=== PATIENT | male | born 1965 | race Caucasian/White ===

== ENCOUNTER 2021-07-15 09:19 | Outpatient (REF) | payer OTHER, SELFPAY ==
--- NOTE | ~2021-07-15 | US_ITS ---
EXAMINATION: US RETROPERITONEAL LIMITED (RENAL ONLY) CLINICAL INFORMATION: Low back pain, unspecified. COMPARISON: CT abdomen and pelvis 11/19/2015. Renal ultrasound 10/31/2007. TECHNIQUE: Real-time imaging of the kidneys. FINDINGS: RIGHT KIDNEY: 10.5 x 5.4 x 5.9 cm (SAG x AP x TRV). The kidney is normal in size, contour, and echogenicity. Renal cortical thickness is normal. Punctate midpole echogenic focus is nonspecific but suspected to represent a vascular reflection. No gross renal calculi. No hydronephrosis. LEFT KIDNEY: 10.7 x 5.2 x 6.1 cm (SAG x AP x TRV). The kidney is normal in size, contour, and echogenicity. Renal cortical thickness is normal. No calculi or focal parenchymal lesions. No hydronephrosis. US/US renal BI IMPRESSION: No gross renal calculi or hydronephrosis of either kidney.
== END 2021-07-15 09:20 | disposition home or self-care (01) ==
LOC: HO.HMGCX 09:19
PROVIDERS: Visit Provider Physician Assistant
DX: M54.50 Low back pain, unspecified (principal); N39.0 Urinary tract infection, site not specified
CPT/HCPCS: 76775; 87086

== ENCOUNTER 2022-01-10 11:34 | Outpatient (REF) | payer OTHER, SELFPAY ==
[2022-01-10 13:59] LABS: MANUAL DIFF FLAG NO
[2022-01-10 14:07] LABS: Basophils Absolute Auto 0.1 X10*3/uL (0.0-0.2); Basophils Percent Auto 0.5 % (0-2); Eosinophils Absolute Auto 0.1 X10*3/uL (0.0-0.4); Eosinophils Percent Auto 1.1 % (0-4); Hematocrit 51.7 % (42.0-52.0); Hemoglobin 17.3 g/dl (14.0-18.0); Imm Gran Abs Auto 0.05 X10*3/uL (0.00-0.03); Imm Gran Pct Auto 0.5 % (0.0-0.4); Lymphocytes Absolute Auto 2.4 X10*3/uL (1.2-4.9); Lymphocytes Percent Auto 25.2 % (20-40); Mean Corpuscular HGB Conc 33.5 g/dl (31.0-36.0); Mean Corpuscular Volume 95.6 fL (80.0-98.0); Mean Platelet Volume 10.1 fL (9.4-12.4); Monocytes Percent Auto 10.4 % (2-11); Neutrophils Absolute Auto 5.8 x10*3/uL (2.0-8.3); Neutrophils Percent Auto 62.3 % (45-73); Platelet Count 330 X10*3/uL (160-400); Red Blood Count 5.41 X10*6/uL (4.60-5.80); Red Cell Distribution Width 14.6 % (11.0-16.0); White Blood Count 9.4 X10*3/uL (4.8-10.8)
[2022-01-10 14:21] LABS: Appearance Urine Clear; Color Urine Dark Yellow; Glucose Urine UA Negative (Negative); Leukocyte Esterase Urine Moderate (2+) (Negative); Nitrite Urine Negative (Negative); PH 5.5 (5.0-9.0); UMIC TRIGGER UACC YES; Urine Blood Negative (Negative); Urine Ketones Trace mg/dL (Negative); Urine Protein Trace mg/dL (Neg-Trace)
[2022-01-10 14:26] LABS: Bacteria Urine None Seen (None Seen); UACC Culture Trigger YES; WBC Urine 21-50 /HPF (0-5)
[2022-01-10 14:40] LABS: Alanine Aminotransferase 88 U/L (0-40); Albumin Level 4.2 g/dL (3.5-5.0); Alkaline Phosphatase 63 U/L (39-117); Anion Gap 17 (12-20); Aspartate Amino Transferase 44 U/L (5-37); Blood Urea Nitrogen 13 mg/dL (9-16); Calcium 9.3 mg/dL (8.4-10.2); Carbon Dioxide 23 mmol/L (22-29); Chloride 104 mmol/L (96-108); Cholesterol 210 mg/dL; Estimated Glomerular Filt Rate > 60; Glucose Fasting 96 mg/dL (60-99); HDL Cholesterol 64 mg/dL; LDL Cholesterol Calculated 131 mg/dl; Potassium 4.1 mmol/L (3.3-5.1); Sodium 140 mmol/L (135-145); Total Protein 6.6 g/dL (6.5-8.0); Triglycerides 77 mg/dL
[2022-01-10 14:46] LABS: Prostate Specific Antigen Scr 2.37 ng/mL (<0.05-4.0); TSH reflex Free T4 1.81 uIU/mL (0.32-4.0)
== END 2022-01-10 11:35 | disposition home or self-care (01) ==
LOC: HO.HMGCLDS 11:34
PROVIDERS: PCP Nurse Practitioner Family; Visit Provider Nurse Practitioner Family
DX: Z00.00 Encounter for general adult medical examination without abnormal findings (principal); Z12.5 Encounter for screening for malignant neoplasm of prostate
CPT/HCPCS: 36415; 80053; 80061; 81001; 81003; 84153; 84443; 85025; 87086

== ENCOUNTER 2022-01-28 08:19 | Outpatient (REF) | payer OTHER, SELFPAY ==
--- NOTE | ~2022-01-28 | US_ITS ---
EXAMINATION: US ABDOMEN COMPLETE CLINICAL INFORMATION: Elevated liver enzymes. COMPARISON: Renal ultrasound 07/15/2021. CT abdomen and pelvis 11/19/2015. TECHNIQUE: Real-time imaging of the abdominal viscera. FINDINGS: PANCREAS: Normal. ABDOMINAL AORTA: The proximal, mid, and distal segments are normal in caliber. INFERIOR VENA CAVA: Visualized portions are normal. LIVER: The liver is normal in size. The liver contour is normal. Echotexture is increased. There are 2 simple cysts measuring 1.3 cm in the left lobe and 1 cm in the right lobe. There is a 1.3 x 1.4 x 1.3 cm solid hyperechoic lesion in the left lobe. There is no intrahepatic biliary duct dilatation seen. GALLBLADDER: Normal. The gallbladder is physiologically distended without evidence of stones, sludge, polyps, wall thickening or pericholecystic fluid. COMMON BILE DUCT: Normal in caliber measuring 0.28 cm in diameter. RIGHT KIDNEY: Normal. No hydronephrosis. No renal calculi or focal parenchymal lesions. The kidney measures 11.1 cm in maximum dimension. LEFT KIDNEY: Normal. No hydronephrosis. No renal calculi or focal parenchymal lesions. The kidney measures 11.5 cm in maximum dimension. SPLEEN: Normal. The spleen measures 10.2 cm in maximum dimension. FREE FLUID: None. US/US abdomen complete IMPRESSION: Liver cysts. 1.3 x 1.4 cm solid hyperechoic lesion in the left lobe of the liver. No definite corresponding abnormality is appreciated on CT October 2015. This may represent a benign hemangioma. Further characterization with liver MRI recommended.
[2022-01-28 11:46] LABS: Appearance Urine Clear; Color Urine Yellow; Glucose Urine UA Negative (Negative); Leukocyte Esterase Urine Small (1+) (Negative); Nitrite Urine Negative (Negative); Specific Gravity - Urine 1.025 (1.005-1.025); UMIC TRIGGER UACC YES; Urine Blood Trace (Negative); Urine Ketones Negative (Negative); Urine Protein Negative (Neg-Trace)
[2022-01-28 11:53] LABS: Bacteria Urine None Seen (None Seen); Squamous Epithelial Cell Urine 0-2 /HPF (0-2); UACC Culture Trigger YES
[2022-01-28 12:03] LABS: HBS Num1 330.63 mIU/mL (0-7.99); HBc Num1 7.85 S/CO (0.00-0.79); HBsAGNum1 0.16 S/CO (0.00-0.99); Hepatitis A Antibody IgM 0.22 Index (0-0.79); Hepatitis B Surface Antigen Negative (Negative); ~HepC Num1 0.05 S/CO (0.00-0.79); ~Hepatitis A Antibody IgM Nonreactive (Nonreactive); ~Hepatitis B Surface Antibody REACTIVE (Nonreactive); ~Hepatitis C Antibody Nonreactive (Nonreactive)
[2022-01-28 14:57] LABS: HBc Num3 7.37 S/CO
[2022-01-28 14:58] LABS: Hepatitis B Core Antibody Reactive (Nonreactive)
== END 2022-01-28 08:20 | disposition home or self-care (01) ==
LOC: HO.HMGCX 08:19
PROVIDERS: PCP Nurse Practitioner Family; Visit Provider Nurse Practitioner Family
DX: Z00.00 Encounter for general adult medical examination without abnormal findings (principal); N39.0 Urinary tract infection, site not specified; R74.8 Abnormal levels of other serum enzymes; K76.89 Other specified diseases of liver
CPT/HCPCS: 36415; 76700; 81001; 86704; 86706; 86709; 86803; 87086; 87340

== ENCOUNTER 2022-01-28 15:37 | Outpatient (REF) | payer OTHER, SELFPAY | END 2022-01-28 15:38 | disposition home or self-care (01) | LOC: HO.LAB 15:37 | PROVIDERS: Visit Provider Nurse Practitioner Family | DX: Z00.00 Encounter for general adult medical examination without abnormal findings (principal); N39.0 Urinary tract infection, site not specified; R74.8 Abnormal levels of other serum enzymes | CPT/HCPCS: 88112 ==

== ENCOUNTER 2022-02-21 17:38 | Outpatient (REF) | payer OTHER, SELFPAY ==
--- NOTE | ~2022-02-21 | MR_ITS ---
EXAMINATION: MR ABDOMEN WITHOUT AND WITH CONTRAST CLINICAL INFORMATION: Liver disease COMPARISON: Abdominal ultrasound 01/28/2022 TECHNIQUE: MRI of the abdomen before and after the IV administration of 8 mL of Gadavist was obtained using routine sequences. FINDINGS: LUNG BASES: The visualized lung bases are unremarkable. KIDNEYS AND URETERS: Unremarkable. GALLBLADDER: Unremarkable. LIVER AND BILIARY TREE: Loss of signal on opposed phase imaging compatible with hepatic steatosis. Scattered hepatic cysts. 2. T2 hyperintense lesions which demonstrate somewhat heterogeneous avid arterial phase enhancement 1 in hepatic segment 2 and 1 in hepatic segment 7 with gradual homogeneous enhancement favored to reflect flash filling hemangiomas. The hepatic segment 7 lesion demonstrates peripheral arterial phase enhancement surrounding the lesion which is isointense on the remainder of phases suggesting a transient hepatic intensity difference/perfusional anomaly. No intra or extrahepatic biliary duct dilatation. PANCREAS: Unremarkable SPLEEN: Unremarkable ADRENAL GLANDS: Unremarkable GASTROINTESTINAL TRACT: Unremarkable. LYMPH NODES: 0.7 cm short axis retrocaval node not pathologically enlarged. VASCULAR: Unremarkable ABDOMINAL WALL: Unremarkable. OSSEOUS STRUCTURES: Unremarkable. MR/MR abdomen wo/w con IMPRESSION: 1. Two T2 hyperintense lesions which demonstrate somewhat heterogeneous avid arterial phase enhancement gradual homogeneous enhancement favored to reflect flash filling hemangiomas. The hepatic segment 7 lesion demonstrates peripheral arterial phase enhancement surrounding the lesion which is isointense on the remainder of phases suggesting a transient hepatic intensity difference/perfusional anomaly. 2. Hepatic steatosis.
== END 2022-02-21 17:39 | disposition home or self-care (01) ==
LOC: HO.MRI 17:38
PROVIDERS: Visit Provider Nurse Practitioner Family
DX: K76.9 Liver disease, unspecified (principal)
CPT/HCPCS: 74183; A9585

== ENCOUNTER 2022-02-25 14:13 | Outpatient (REF) | payer OTHER, SELFPAY ==
--- NOTE | ~2022-02-25 | CT_ITS ---
EXAMINATION: CT CHEST SCREENING CLINICAL INFORMATION: Nicotine dependence. 1 PPD for 38 years. Current smoker. COMPARISON: None. TECHNIQUE: Multidetector volumetric CT imaging of the chest is performed without contrast using low dose technique. Additional 2D coronal and sagittal reformatted images and axial 3D maximum intensity projection (MIP) images are generated on the CT workstation. This CT examination was performed using dose optimization techniques as appropriate, variously including the following: *Automated exposure control *Adjustment of mA and/or kV according to patient size (this includes techniques or standardized protocols for targeted exams where dose is matched to indication/reason for exam; i.e. extremities or head) *Use of iterative reconstruction technique DLP: 65 mGy-cm FINDINGS: LUNGS: The lungs are well-expanded and clear with acute pneumonic consolidation, mass or groundglass density. There are punctate 1 mm calcifications right upper and bilateral lower lobes. Minimal atelectatic changes are seen in the lingula. MEDIASTINUM: The thyroid lobes are symmetric and normal. The central trachea and the bronchi are widely patent. Heart size and the great vessels are normal caliber. There is no pericardial effusion. There are small shotty lymph nodes in the mediastinum. CORONARY ARTERY CALCIFICATION: None visualized on this study. PLEURA: There is no pleural effusion. No pleural mass or thickening. AXILLA: No lymphadenopathy. UPPER ABDOMEN: Visualized liver, spleen, pancreas are unremarkable. A prominent left adrenal gland measuring 1.6 cm is noted. OSSEOUS STRUCTURES: Unremarkable. CT/CT lung screening IMPRESSION: Punctate 1 mm calcifications, no noncalcified nodules, mass or mediastinal adenopathy. ASSESSMENT: Lung-RADS category 2: Benign. RECOMMENDATION: Low-dose annual CT chest.
== END 2022-02-25 14:14 | disposition home or self-care (01) ==
LOC: HO.CT 14:13
PROVIDERS: PCP Nurse Practitioner Family; Visit Provider Physician Assistant Medical
DX: Z12.2 Encounter for screening for malignant neoplasm of respiratory organs (principal); F17.210 Nicotine dependence, cigarettes, uncomplicated
CPT/HCPCS: 71271; G0296

== ENCOUNTER 2022-08-15 10:13 | Outpatient (REF) | payer OTHER, SELFPAY ==
[2022-08-16 09:08] LABS: Lyme Abs Screen <0.90 index
== END 2022-08-15 10:14 | disposition home or self-care (01) ==
LOC: HO.HMGCLDS 10:13
PROVIDERS: PCP Nurse Practitioner Family; Visit Provider Physician Assistant
DX: R22.0 Localized swelling, mass and lump, head (principal)
CPT/HCPCS: 36415; 86617; 86618

== ENCOUNTER 2022-09-06 08:06 | Outpatient (REF) | payer OTHER, SELFPAY ==
[2022-09-06 11:12] LABS: MANUAL DIFF FLAG NO
[2022-09-06 11:33] LABS: Basophils Percent Auto 0.6 % (0-2); Eosinophils Absolute Auto 0.2 X10*3/uL (0.0-0.4); Eosinophils Percent Auto 2.2 % (0-4); Hematocrit 51.2 % (42.0-52.0); Imm Gran Abs Auto 0.04 X10*3/uL (0.00-0.03); Imm Gran Pct Auto 0.6 % (0.0-0.4); Lymphocytes Absolute Auto 2.2 X10*3/uL (1.2-4.9); Lymphocytes Percent Auto 30.4 % (20-40); Mean Corpuscular HGB Conc 33.2 g/dl (31.0-36.0); Mean Corpuscular Hemoglobin 30.1 pg (27.0-33.0); Mean Corpuscular Volume 90.6 fL (80.0-98.0); Mean Platelet Volume 9.6 fL (9.4-12.4); Monocytes Absolute Auto 0.7 X10*3/uL (0.1-1.2); Neutrophils Absolute Auto 4.1 x10*3/uL (2.0-8.3); Neutrophils Percent Auto 56.2 % (45-73); Platelet Count 299 X10*3/uL (160-400); Red Blood Count 5.65 X10*6/uL (4.60-5.80); Red Cell Distribution Width 14.4 % (11.0-16.0); White Blood Count 7.2 X10*3/uL (4.8-10.8)
[2022-09-06 12:09] LABS: Alanine Aminotransferase 26 U/L (0-40); Albumin Level 4.2 g/dL (3.5-5.0); Alkaline Phosphatase 69 U/L (39-117); Anion Gap 12 (12-20); Aspartate Amino Transferase 19 U/L (5-37); Bilirubin Total 1.8 mg/dL (0.0-1.0); Blood Urea Nitrogen 10 mg/dL (9-16); Calcium 9.1 mg/dL (8.4-10.2); Carbon Dioxide 29 mmol/L (22-29); Chloride 102 mmol/L (96-108); Cholesterol 200 mg/dL; Estimated Glomerular Filt Rate > 60; Glucose Fasting 114 mg/dL (60-99); HDL Cholesterol 51 mg/dL; LDL Cholesterol Calculated 127 mg/dl; Potassium 4.2 mmol/L (3.3-5.1); Sodium 139 mmol/L (135-145); TSH reflex Free T4 2.41 uIU/mL (0.32-4.0); Total Protein 6.7 g/dL (6.5-8.0); Triglycerides 110 mg/dL
[2022-09-06 14:22] LABS: Appearance Urine Clear; Color Urine Dark Yellow; Glucose Urine UA Negative (Negative); Leukocyte Esterase Urine Small (1+) (Negative); Nitrite Urine Negative (Negative); PH 5.5 (5.0-9.0); Specific Gravity - Urine 1.025 (1.005-1.025); UMIC TRIGGER UACC YES; Urine Blood Negative (Negative); Urine Ketones 15 mg/dL (Negative); Urine Protein Trace mg/dL (Neg-Trace)
[2022-09-06 14:32] LABS: Bacteria Urine None Seen (None Seen); RBC Urine 0-2 /HPF (0-2); Squamous Epithelial Cell Urine 0-2 /HPF (0-2); UACC Culture Trigger YES; WBC Urine 0-5 /HPF (0-5)
[2022-09-06 14:38] LABS: Urine Cytology See Pathology rpt
== END 2022-09-06 08:07 | disposition home or self-care (01) ==
LOC: HO.HMGCLDS 08:06
PROVIDERS: PCP Nurse Practitioner Family; Visit Provider Nurse Practitioner Family
DX: R74.8 Abnormal levels of other serum enzymes (principal); N39.0 Urinary tract infection, site not specified; R53.83 Other fatigue; F17.200 Nicotine dependence, unspecified, uncomplicated
CPT/HCPCS: 36415; 80053; 80061; 81001; 84443; 85025; 87086; 88112

== ENCOUNTER 2022-09-27 09:58 | Day surgery (SDC) | payer OTHER, SELFPAY ==
--- NOTE | 2022-09-26 11:00 | HO.ANESPROP2 ---
Documented by User: Rachael Thakkar NP 09/26/22 11:01 HPI - Anesthesia Eval Consult details Narrative: 56yo M for Colonoscopy PMF Active Problems Active Problems: All Active Problems (Updated 09/23/22 @ 13:39 by Juli Rahman RN) Muscle spasm (Acute) Low back pain (Acute) UTI (urinary tract infection) (Acute) Cerumen impaction (Acute) Elevated liver enzymes (Acute) Liver lesion (Acute) Liver lesion (Acute) Elevated bilirubin (Acute) History of colon polyps (Acute) Nicotine dependence, cigarettes, uncomplicated (Acute) Past Medical History Medical History (Updated 09/23/22 @ 13:39 by Juli Rahman RN) History of colon polyps Hx of low back pain Nicotine dependence, cigarettes, uncomplicated Family History Family History Maternal Grandfather Substance use disorder Surgical History Surgical History (Updated 09/23/22 @ 13:39 by Juli Rahman RN) History of colonoscopy History of hand surgery History of lumbar surgery (~2005) History of lumbar surgery (~2006) Social History Social History Housing: House Alcohol intake: current Alcohol intake frequency: a few times a week Alcohol type: hard liquor Patient Tobacco Use Status: Current everyday Tobacco user Tobacco use type: Cigarette Cigarette Packs Per Day: 1 Cigarettes Per Day: 20.0 Years Smoked: 18 e-Cigarette/Vaping Use: Never Used Second Hand Smoke Exposure: Yes service: No Current occupational status: employed Current occupation: [employer] Current occupational exposures/hazards: Yes Cognitive needs: No Hearing needs: No Vision needs: No Meds Allergies Allergy/AdvReac Type Severity Reaction Status Date / Time No Known Allergies Allergy Verified 09/27/22 10:32 Home Medications Medication Instructions Recorded Confirmed Last Taken Type No Known Home Meds 09/23/22 09/27/22 Unknown History Exam Exam Date and Time: September 26, 2022 1100 Pertinent Lab Results Pertinent Lab Results: Laboratory Tests 09/06/22 09/06/22 08:12 08:12 WBC 7.2 Hgb 17.0 Hct 51.2 Plt Count 299 Sodium 139 Potassium 4.2 Chloride 102 Carbon Dioxide 29 BUN 10 Creatinine 0.82 Assessment and Plan Assessment Anesthesia Assessment: Chart Reviewed Documented by User: Delmer Leigh MD 09/27/22 18:16 HPI - Anesthesia Eval Consult details Narrative: 56yo M for Colonoscopy COPD [facility] Past Medical History Medical History (Updated 09/23/22 @ 13:39 by Juli Rahman RN) History of colon polyps Hx of low back pain Nicotine dependence, cigarettes, uncomplicated Functional capacity: independent ambulation Family History Family History Maternal Grandfather Substance use disorder Family history of problems with anesthesia: No Surgical History Surgical History (Updated 09/23/22 @ 13:39 by Juli Rahman RN) History of colonoscopy History of hand surgery History of lumbar surgery (~2005) History of lumbar surgery (~2006) History of Problems with Anesthesia: No Social History Social History Housing: House Alcohol intake: current Alcohol intake frequency: a few times a week Alcohol type: hard liquor Patient Tobacco Use Status: Current everyday Tobacco user Tobacco use type: Cigarette Cigarette Packs Per Day: 1 Cigarettes Per Day: 20.0 Years Smoked: 18 e-Cigarette/Vaping Use: Never Used Second Hand Smoke Exposure: Yes service: No Current occupational status: employed Current occupation: [employer] Current occupational exposures/hazards: Yes Cognitive needs: No Hearing needs: No Vision needs: No Meds Allergies Allergy/AdvReac Type Severity Reaction Status Date / Time No Known Allergies Allergy Verified 09/27/22 10:32 Home Medications Medication Instructions Recorded Confirmed Last Taken Type No Known Home Meds 09/23/22 09/27/22 Unknown History Exam Airway Mallampati Class: III TM Dist: >3cm Neck ROM: Full Loose/Missing/Broken Teeth: Yes Assessment and Plan Assessment Anesthesia Assessment: Anesthesia Plan Discussed Final Anesthetic Review Family History of Problems with Anesthesia: No History of Problems with Anesthesia: No NPO: Yes ASA Class: II Final Preanesthetic Review: Meds/Allgs Chart Reviewed, Consent Obtained/Reviewed and Anes Risks/Benef Reviewed Patient Risk: Intermediate Procedure Risk: Intermediate Anesthetic Plan Anesthetic Plan: MAC: and Agree w/ Assess. and Plan Disposition: Standard PACU
[2022-09-27 10:32] VITALS: BMI 29.3
[2022-09-27] MEDS: Albuterol Sulfate (0.083%) 2.5 MG/3 ML VIAL.NEB INHALE (10:49)
[2022-09-27 10:51] VITALS: PULSE 66; RESP 18; O2SAT 97
--- NOTE | 2022-09-27 10:51 | MHC.SHP ---
Pre-Procedural Eval Section A Date of Service: 09/27/22 Section B Chief Complaint: Encounter for screening for malignant neoplasm of Relevant Family History (Specify if Yes): No Relevant Social History: Tobacco Use Present Medications: see Short Stay Collaborative assessment Medical History: Significant History (History of colon polyps Hx of low back pain Nicotine dependence, cigarettes, uncomplicated) History of Previous Operations: Relevant previous surgery/procedure and date(s) (History of colonoscopy History of hand surgery History of lumbar surgery (~2005) History of lumbar surgery (~2006)) Allergies: Allergies Allergy/AdvReac Type Severity Reaction Status Date / Time No Known Allergies Allergy Verified 09/27/22 10:32 Review of Systems Sugical H&P ROS: Negative: Constitution, Cardiovascular, Respiratory, Neurological, Psychiatric, Hem-Onc, Allergic/Immunologic, Gastrointestinal, Genitourinary, Musculoskeletal, Integumentary, Endocrine and Eyes/Ears/Nose/Throat Exam Surgical H&P Exam: Normal: HEENT, Normal: Heart, Normal: Lungs, Normal: Extremities, Normal: Abdomen, Normal: Skin and Normal: Neurological Plan Diagnosis/Plan: Unchanged I have reviewed the history and physical and performed a pertinent physical examination on my patient. No changes have occurred unless specified. Time Spent With Patient Time: Total time managing care of this patient today ____ minutes.
[2022-09-27] MEDS: Lactated Ringers 1,000 ML 100 ML IVCONT (11:10)
--- NOTE | 2022-09-27 11:48 | P.OP_ITS ---
Operative Note Operative Note Date of Service: 09/27/22 Narrative: Operative Information Procedure Description: Colonoscopy Indication: screening Anesthesia: MAC COLONOSCOPY Instrument: Olympus variable stiffness pediatric scope 190L Colonoscopy Monitoring: Vital signs and clinical assessment, continuous EKG monitoring, Pulse oximetry, Carbon Dioxide monitoring and blood pressure monitoring were done throughout the procedure. Colon withdrawal time was [] minutes. Procedure: The patient was placed in the left lateral decubitis position and pre-procedure medications were administered. After a digital rectal examination of the ano-rectum, the video colonoscope was inserted into the rectum and advanced through the colon to the cecum/TI. The colonoscope was slowly withdrawn in a retrograde panoramic fashion and the colon mucosa was carefully examined including a retroflexed view of the rectum. Findings and interventions are described below. Procedure Difficulty: easy Findings: Terminal Ileum-normal Cecum:normal Ascending Colon: few diverticula seen Transverse Colon -normal Descending Colon: x1 sessile polyp 10-12 mm removed with cold snare, one clip applied for hemostasis Sigmoid Colon: moderate diverticulosis, x 2 sessile polyps 9-12 mm removed with cold snare , one area kept bleeding so x 1 clip applied for hemostasis. Rectum: Retroflexion with small internal hemorrhoids, grade I. x3 small sessile polyps noted in proximal rectum measuring 4-6 mm removed with cold snare. In mid to distal rectum there were x2 large pedunculated polyps measuring 13-20 mm in size. These were injected with epi and then removed with hot snare. clips were applied to each area. Kelly ink was injected into the base of the larger resected polyp area, which was about 10 cm from anal verge. Anorectum - normal Colon preparation: [place] Bowel Preparation Scale Right colon; 2 Transverse colon: 3 Left colon; 3 (0 = Unprepared colon segment with mucosa not seen due to solid stool that cannot be cleared. 1 = Portion of mucosa of the colon segment seen, but other areas of the colon segment not well seen due to staining, residual stool and/or opaque liquid. 2 = Minor amount of residual staining, small fragments of stool and/or opaque liquid, but mucosa of colon segment seen well. 3 = Entire mucosa of colon segment seen well with no residual staining, small fragments of stool or opaque liquid) Impression and Post Procedure Diagnosis: polyps internal hemorrhoids diverticular disease Plan: High fiber diet leaflet Avoid straining at stool, epsom salts and sitz bath, anusol supps or cream Repeat Colonoscopy in 8-12 months or earlier if clinically indicated Above findings were reviewed with the patient and relevant handouts were provided if indicated.
[2022-09-27 13:08] VITALS: BP 109/57; PULSE 68; RESP 16; TEMP 36.3; O2SAT 97
[2022-09-27 13:23] VITALS: BP 124/76; PULSE 64; RESP 16; TEMP 36.3; O2SAT 98
[2022-09-27 13:38] VITALS: BP 124/76; PULSE 62; RESP 16; O2SAT 98
== END 2022-09-27 14:00 | disposition home or self-care (01) ==
PROVIDERS: PCP Nurse Practitioner Family; Visit Provider Internal Medicine Gastroenterology
PROC: 0DJD8ZZ Inspection of Lower Intestinal Tract, Via Natural or Artificial Opening Endoscopic (ICD-10-PCS; CPT 45378; principal; 2022-09-27 11:40)
DX: Z12.11 Encounter for screening for malignant neoplasm of colon (principal); Z86.010 Personal history of colon polyps; D12.5 Benign neoplasm of sigmoid colon; D12.8 Benign neoplasm of rectum; K57.30 Diverticulosis of large intestine without perforation or abscess without bleeding; K64.0 First degree hemorrhoids; K59.00 Constipation, unspecified; F17.210 Nicotine dependence, cigarettes, uncomplicated
CPT/HCPCS: 45385; 45381; 88305; J0171

== ENCOUNTER → 2022-10-10 11:30 | Outpatient (BNVA) | payer OTHER, SELFPAY | PROVIDERS: PCP Nurse Practitioner Family; Visit Provider Nurse Practitioner Family ==

== ENCOUNTER 2022-12-05 11:11 | Outpatient (REF) | payer OTHER, SELFPAY ==
[2022-12-05 13:53] LABS: Appearance Urine Clear; Color Urine Yellow; Glucose Urine UA Negative (Negative); Leukocyte Esterase Urine Small (1+) (Negative); Nitrite Urine Negative (Negative); PH 5.5 (5.0-9.0); Specific Gravity - Urine 1.025 (1.005-1.025); UMIC TRIGGER UACC YES; Urine Blood Negative (Negative); Urine Ketones Negative (Negative); Urine Protein Negative (Neg-Trace)
[2022-12-05 13:57] LABS: Bacteria Urine None Seen (None Seen); Hyaline Casts Urine 0-2 /LPF (0-2); RBC Urine 0-2 /HPF (0-2); Squamous Epithelial Cell Urine 0-2 /HPF (0-2); UACC Culture Trigger YES
[2022-12-05 14:12] LABS: Bilirubin Direct 0.3 mg/dL (0.0-0.5); Bilirubin Total 0.8 mg/dL (0.0-1.0)
== END 2022-12-05 11:12 | disposition home or self-care (01) ==
LOC: HO.HMGCLDS 11:11
PROVIDERS: PCP Nurse Practitioner Family; Visit Provider Nurse Practitioner Family
DX: R17 Unspecified jaundice (principal); R82.90 Unspecified abnormal findings in urine
CPT/HCPCS: 36415; 81001; 82247; 82248; 87086

== ENCOUNTER 2023-01-05 10:25 | Outpatient (AMB) | payer OTHER, SELFPAY ==
--- NOTE | 2023-01-05 10:33 | MHC.PC.OV ---
Vital Signs 01/05/23 10:34 Height 5 ft 7 in Weight 214 lb BMI 33.5 BP 112/78 Blood Pressure Location Rt brachial Position Sitting Pulse 70 Pulse Source Pulse Oximeter Pulse Oximetry (%) 92 Oxygen Delivery Method Room Air Intake Visit Reasons: Annual PE Allergies No Known Allergies Allergy (Verified 01/05/23 10:34) Medication List - Last Reconciled 01/05/23 by SIMI Uriostegui-SAYAD polyethylene glycol 3350 (Miralax) 17 grams PO .prn PRN Tobacco use date assessed: 07/04/22 Dental Screening Dental Screen Date: 01/05/23 Did you have a dental visit in the last 12 months?: Yes Did you have a dental problem in the last 6 months where you did not have access to dental care?: No Was dental information given to patient?: Patient has dentist HPI Annual PE HPI Details Pt is here for a PE. Will order labs. He is seeing GI for his colon screen. Due for PSA, will order. Denies dribbling with urination, weak stream, and nocturia. He reports emptying his bladder completely, refuses CHE today PFSH Medical History Tubulovillous adenoma Hx of low back pain History of colon polyps Nicotine dependence, cigarettes, uncomplicated Surgical History History of hand surgery History of lumbar surgery (~2006) History of lumbar surgery (~2005) History of colonoscopy Family History Maternal Grandfather Substance use disorder Social History Housing: House Alcohol intake: current Alcohol intake frequency: a few times a week Alcohol type: hard liquor Patient Tobacco Use Status: Current everyday Tobacco user Tobacco use type: Cigarette Cigarette Packs Per Day: 1 Cigarettes Per Day: 20.0 Years Smoked: 18 e-Cigarette/Vaping Use: Never Used Second Hand Smoke Exposure: Yes service: No Current occupational status: employed Current occupation: [employer] Current occupational exposures/hazards: Yes Cognitive needs: No Hearing needs: No Vision needs: No Questionnaire Thrive Questionnaire Date Thrive assessed: 01/04/22 AUDIT C Alcohol Use Questionnaire (AUDIT-C) 1. How often do you have a drink containing alcohol?: Monthly or less 2. How many drinks containing alcohol do you have on a typical day when you are drinking?: 1 or 2 3. How often do you have six or more drinks on one occasion?: Never Total Score: 1 Score Reviewed/Action Taken: No ELICEO-7 AMB Questionnaire ELICEO-7 Date ELICEO - 7 assessed: 01/04/22 Source: Developed by Drs. Omi Buckner, Lacey Warner, Elvin Sutton and colleagues, with an educational celio from [employer]. Review of Systems Const Denies chills and Denies fever(s) Eyes Denies blurry vision ENT Denies vertigo, Denies dizziness and Denies sore throat Card Denies chest pain at rest, Denies chest pain with activity, Denies diaphoresis, Denies dyspnea and Denies dyspnea on exertion Resp Denies cough, Denies dyspnea, Denies dyspnea on exertion and Denies wheezing GI Denies abdominal pain, Denies melena, Denies hematochezia, Denies constipation, Denies diarrhea and Denies loose stools Denies hematuria Musc Denies numbness and Denies tingling Skin/Breast Denies lesions Neuro Denies vertigo, Denies dizziness, Denies numbness and Denies tingling Psych Denies anxiety, Denies depression, Denies homicidal ideation, Denies suicidal ideation and Denies other (substance abuse) Aller/Immun Denies wheezing Physical exam (Primary Care) Vital Signs: Last Vital Signs Pulse 70 01/05/23 10:34 BP 112/78 01/05/23 10:34 Pulse Ox 92 01/05/23 10:34 Oxygen Delivery Method Room Air 01/05/23 10:34 BMI result Body Mass Index 33.5 Tobacco/Smoking Status: Tobacco use Status Tobacco use date assessed 07/04/22 01/05/23 10:37 Patient Tobacco Use Status Current everyday Tobacco 01/05/23 10:37 Tobacco use type Cigarette 01/05/23 10:37 e-Cigarette/Vaping Use Never Used 01/05/23 10:37 Thrive Assessment: Date of Thrive Assessment Date Thrive assessed 01/04/22 01/05/23 10:37 Const General: cooperative Nutritional Appearance: obese Orientation/consciousness: patient oriented x3 HENMT Head: Yes normal to inspection, Yes normocephalic and Yes atraumatic Ears: TM's normal bilaterally Eyes General: appearance normal, both eyes and all related structures Alignment and Position: alignment normal and position normal Neck Neck: Yes normal visual inspection and Yes no lymphadenopathy Thyroid: Thyroid normal Resp Effort & Inspection: normal respiratory effort Auscultation: clear to auscultation bilaterally Cardio Rate: regular rate Rhythm: regular rhythm Heart sounds: S1 normal heart sound present, S2 normal heart sound present and no murmurs GI Palpation (GI): Soft to palpation and nontender Auscultation: normal bowel sounds Male General Exam: Yes normal external exam Penis: normal penis Scrotum: scrotum normal, testes descended bilaterally and no inguinal hernias Testes: no testicular mass Skin Rashes: no rashes Neuro General: patient oriented x3, moves all extremities, no focal motor deficits and deep tendon reflexes 2+ bilaterally Romberg Test: Negative Psych Appearance: grossly normal Mental Status: mental status grossly normal Speech and movement: Normal speech and movement present Affect: normal affect Attitude: cooperative Thought process: Normal thought process present Thought content: Normal thought content present Insight: Good insight present (Psych) Judgement: Good judgement present (Psych) Assessment and Plan Assessment & Plan (1) Physical exam: Code(s): Z00.00 - Encounter for general adult medical examination without abnormal findings (2) Screening PSA (prostate specific antigen): Code(s): Z12.5 - Encounter for screening for malignant neoplasm of prostate Plan The patient agreed to the use of a medical aides teacher for this encounter. Scribed for BENJA Rivera by Ruth Tom medical aides teacher, on 01/05/2023 at 10:45 EST. Orders: Orders Complete Blood Count Auto Diff Today Z00.00 - Encounter for general adult medical examination without abnormal findings Comprehensive [place]. Panel Fast Today Z00.00 - Encounter for general adult medical examination without abnormal findings UA CC w/rflx Micro + Cult Today Z00.00 - Encounter for general adult medical examination without abnormal findings Complete Blood Count Auto Diff 1 Day Z00.00 - Encounter for general adult medical examination without abnormal findings Comprehensive [place]. Panel Fast 1 Day Z00.00 - Encounter for general adult medical examination without abnormal findings TSH reflex Free T4 1 Day Z00.00 - Encounter for general adult medical examination without abnormal findings UA CC w/rflx Micro + Cult 1 Day Z00.00 - Encounter for general adult medical examination without abnormal findings Prostate Specific Antigen Scr Today Z12.5 - Encounter for screening for malignant neoplasm of prostate TSH reflex Free T4 Today Z00.00 - Encounter for general adult medical examination without abnormal findings Lipid Panel Today Z00.00 - Encounter for general adult medical examination without abnormal findings Lipid Panel 1 Day Z00.00 - Encounter for general adult medical examination without abnormal findings AMB EKG-In Office Today Z00.00 - Encounter for general adult medical examination without abnormal findings Medications: Changed From polyethylene glycol 3350 (Miralax) 17 grams PO DAILY 510 grams 2RF To polyethylene glycol 3350 (Miralax) 17 grams PO .prn PRN Coding Level of Care Code Est Pt Prev Care 40-64y(83066) Diagnoses Physical exam Z00.00 Screening PSA (prostate specific antigen) Z12.5
[2023-01-05 10:34] VITALS: BP 112/78; PULSE 70; O2SAT 92; BMI 33.5
== END 2023-01-05 12:42 | disposition home or self-care (01) ==
PROVIDERS: Visit Provider Nurse Practitioner Family
DX: Z00.00 Encounter for general adult medical examination without abnormal findings (principal); Z12.5 Encounter for screening for malignant neoplasm of prostate
CPT/HCPCS: 99396

== ENCOUNTER 2023-05-11 08:33 | Outpatient (REF) | payer OTHER, SELFPAY ==
[2023-05-11 11:47] LABS: Appearance Urine Clear; Color Urine Yellow; Glucose Urine UA Negative (Negative); Leukocyte Esterase Urine Trace (Negative); Nitrite Urine Negative (Negative); UMIC TRIGGER UACC YES; Urine Blood Negative (Negative); Urine Ketones Negative (Negative); Urine Protein Negative (Neg-Trace)
[2023-05-11 11:51] LABS: Bacteria Urine None Seen (None Seen); Hyaline Casts Urine 0-2 /LPF (0-2); RBC Urine 0-2 /HPF (0-2); Squamous Epithelial Cell Urine 0-2 /HPF (0-2); WBC Urine 0-5 /HPF (0-5)
[2023-05-11 12:03] LABS: MANUAL DIFF FLAG NO
[2023-05-11 12:12] LABS: Basophils Percent Auto 0.7 % (0-2); Eosinophils Absolute Auto 0.2 X10*3/uL (0.0-0.4); Eosinophils Percent Auto 2.8 % (0-4); Hematocrit 50.8 % (42.0-52.0); Hemoglobin 16.7 g/dl (14.0-18.0); Imm Gran Abs Auto 0.04 X10*3/uL (0.00-0.03); Imm Gran Pct Auto 0.7 % (0.0-0.4); Lymphocytes Absolute Auto 1.5 X10*3/uL (1.2-4.9); Lymphocytes Percent Auto 26.9 % (20-40); Mean Corpuscular HGB Conc 32.9 g/dl (31.0-36.0); Mean Corpuscular Hemoglobin 30.9 pg (27.0-33.0); Mean Corpuscular Volume 93.9 fL (80.0-98.0); Mean Platelet Volume 9.6 fL (9.4-12.4); Monocytes Absolute Auto 0.7 X10*3/uL (0.1-1.2); Monocytes Percent Auto 11.8 % (2-11); Neutrophils Absolute Auto 3.3 x10*3/uL (2.0-8.3); Neutrophils Percent Auto 57.1 % (45-73); Platelet Count 253 X10*3/uL (160-400); Red Blood Count 5.41 X10*6/uL (4.60-5.80); Red Cell Distribution Width 14.3 % (11.0-16.0); White Blood Count 5.7 X10*3/uL (4.8-10.8)
[2023-05-11 12:33] LABS: Prostate Specific Antigen Scr 1.22 ng/mL (<0.05-4.0)
[2023-05-11 12:51] LABS: Alanine Aminotransferase 31 U/L (0-40); Albumin Level 4.1 g/dL (3.5-5.0); Alkaline Phosphatase 79 U/L (39-117); Anion Gap 13 (12-20); Aspartate Amino Transferase 22 U/L (5-37); Blood Urea Nitrogen 10 mg/dL (9-16); Calcium 9.3 mg/dL (8.4-10.2); Carbon Dioxide 27 mmol/L (22-29); Chloride 104 mmol/L (96-108); Cholesterol 170 mg/dL (<200); Estimated Glomerular Filt Rate > 60; Glucose Fasting 97 mg/dL (60-99); HDL Cholesterol 48 mg/dL (>40); LDL Cholesterol Calculated 110 mg/dL (<100); Potassium 4.3 mmol/L (3.3-5.1); Sodium 140 mmol/L (135-145); TSH reflex Free T4 1.07 uIU/mL (0.32-4.0); Triglycerides 60 mg/dL (<150)
== END 2023-05-11 08:34 | disposition home or self-care (01) ==
LOC: HO.HMGCLDS 08:33
PROVIDERS: PCP Nurse Practitioner Family; Visit Provider Nurse Practitioner Family
DX: Z00.00 Encounter for general adult medical examination without abnormal findings (principal); Z12.5 Encounter for screening for malignant neoplasm of prostate
CPT/HCPCS: 36415; 80053; 80061; 81001; 84153; 84443; 85025

== ENCOUNTER 2023-05-16 11:00 | Outpatient (REF) | payer OTHER, SELFPAY ==
[2023-05-16 13:59] LABS: Appearance Urine Clear; Color Urine Dark Yellow; Glucose Urine UA Negative (Negative); Leukocyte Esterase Urine Moderate (2+) (Negative); Nitrite Urine Negative (Negative); PH 5.5 (5.0-9.0); UMIC TRIGGER UACC YES; Urine Blood Small (1+) (Negative); Urine Ketones Negative (Negative); Urine Protein Negative (Neg-Trace)
[2023-05-16 14:20] LABS: Bacteria Urine None Seen (None Seen); Hyaline Casts Urine 0-2 /LPF (0-2); RBC Urine 0-2 /HPF (0-2); Squamous Epithelial Cell Urine 0-2 /HPF (0-2); UACC Culture Trigger YES; WBC Urine 21-50 /HPF (0-5)
== END 2023-05-16 11:01 | disposition home or self-care (01) ==
LOC: HO.HMGCLDS 11:00
PROVIDERS: PCP Nurse Practitioner Family; Visit Provider Nurse Practitioner Family
DX: Z00.00 Encounter for general adult medical examination without abnormal findings (principal); R82.90 Unspecified abnormal findings in urine
CPT/HCPCS: 81001; 81003; 87086

== ENCOUNTER 2023-07-11 09:52 | Outpatient (AMB) | payer OTHER, SELFPAY ==
--- NOTE | 2023-07-11 09:55 | A.OFFPC_ITS ---
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 He reports some discomfort to his posterior left ribs. Will order XR. Denies any shortness of breath. Pt will be following up with urology due to micro hem, UTIs. He will be following up with them in the near future. Denies fever, chills, flank pain, dysuria, and visible hematuria. [facility] Medical History Tubulovillous adenoma Hx of low back pain History of colon polyps Nicotine dependence, cigarettes, uncomplicated Surgical History History of hand surgery History of lumbar surgery (~2006) History of lumbar surgery (~2005) History of colonoscopy Family History Maternal Grandfather Substance use disorder Social History Housing: House Alcohol intake: current Alcohol intake frequency: a few times a week Alcohol type: hard liquor Patient Tobacco Use Status: Current everyday Tobacco user Tobacco use type: Cigarette Cigarette Packs Per Day: 1 Cigarettes Per Day: 20.0 Years Smoked: 18 e-Cigarette/Vaping Use: Never Used Second Hand Smoke Exposure: Yes service: No Current occupational status: employed Current occupation: [employer] Current occupational exposures/hazards: Yes Cognitive needs: No Hearing needs: No Vision needs: No Questionnaire Thrive Questionnaire Date Thrive assessed: 07/11/23 I am a: Patient What is your living situation today?: I have a steady place to live Within the past 12 months, did the food you bought not last and you didn't have the money to get more?: Never true Within the past 12 months, did you worry whether your food would run out before you got money to buy more?: Never true Do you have trouble paying for medicines?: No Do you have trouble getting transportation to medical appointments?: No Do you have trouble paying your heating and electricity bill?: No Do you have trouble taking care of your child, family member or friend?: No Do you have trouble with day-to-day activities such as bathing, preparing meals, shopping, managing finances, etc.?: No Are you currently unemployed and looking for a job?: No Are you interested in more education?: No Please select the resources that you would like help with: None Currently or been in a relationship where the following occur: no concerns reported THRIVE Score: 0 AUDIT C Alcohol Use Questionnaire (AUDIT-C) 1. How often do you have a drink containing alcohol?: 2-3 times a week 2. How many drinks containing alcohol do you have on a typical day when you are drinking?: 5 or 6 3. How often do you have six or more drinks on one occasion?: Never Total Score: 5 Score Reviewed/Action Taken: Yes ELICEO-7 AMB Questionnaire ELICEO-7 Date ELICEO - 7 assessed: 07/11/23 Source: Developed by Drs. Omi Buckner, Lacey Warner, Elvin Sutton and colleagues, with an educational celio from [employer]. Review of Systems Const Reports as per HPI Physical exam (Primary Care) Vital Signs: Last Vital Signs Pulse 72 07/11/23 09:59 BP 128/80 07/11/23 09:59 Pulse Ox 97 07/11/23 09:59 Oxygen Delivery Method Room Air 07/11/23 09:59 BMI result Body Mass Index 30.1 Tobacco/Smoking Status: Tobacco use Status Tobacco use date assessed 07/11/23 07/11/23 10:02 Patient Tobacco Use Status Current everyday Tobacco 07/11/23 10:02 Tobacco use type Cigarette 03/19/24 10:02 e-Cigarette/Vaping Use Never Used 07/11/23 10:02 Thrive Assessment: Date of Thrive Assessment Date Thrive assessed 07/11/23 07/11/23 10:02 Currently or been in a relationship where the following occur: no concerns reported Const General: cooperative Orientation/consciousness: patient oriented x3 Resp Other: lungs fairly clear Effort & Inspection: normal respiratory effort Cardio Rate: regular rate Rhythm: regular rhythm Heart sounds: S1 normal heart sound present and S2 normal heart sound present General: Yes no CVA tenderness Back/Spine/Pelvis Back: no CVA tenderness Skin Other: upper mid back with large vertical linear healing abrasion, circular abrasion patch to left flank region, no signs of infection Neuro General: patient oriented x3 Psych Appearance: grossly normal Mental Status: mental status grossly normal Speech and movement: Normal speech and movement present Affect: normal affect Attitude: cooperative Thought process: Normal thought process present Thought content: Normal thought content present Insight: Good insight present (Psych) Judgement: Good judgement present (Psych) Assessment and Plan Assessment & Plan (1) Rib pain: Code(s): R07.81 - Pleurodynia Plan: XR ordered (2) Fall: Code(s): W19.XXXA - Unspecified fall, initial encounter Plan The patient agreed to the use of a medical office professional instructor for this encounter. Scribed for BENJA Rivera by Ruth Tom medical office professional instructor, on 07/11/2023 at 10:35 EST. Orders: Orders XR ribs LT 2V Today R07.81 - Pleurodynia Coding Level of Care Code Est Pt Level 3 (80463) Diagnoses Rib pain R07.81 Fall W19.XXXA
[2023-07-11 09:59] VITALS: BP 128/80; PULSE 72; O2SAT 97; BMI 30.1
== END 2023-07-11 10:41 | disposition home or self-care (01) ==
PROVIDERS: PCP Nurse Practitioner Family; Visit Provider Nurse Practitioner Family
DX: R07.81 Pleurodynia (principal); W10.8XXA Fall (on) (from) other stairs and steps, initial encounter
CPT/HCPCS: 99213

== ENCOUNTER 2023-07-14 11:27 | Outpatient (REF) | payer OTHER, SELFPAY ==
--- NOTE | ~2023-07-14 | XR_ITS ---
EXAMINATION: XR RIBS, LEFT CLINICAL INFORMATION: Posterior left rib cage pain COMPARISON: None available. TECHNIQUE: 3 views of the left ribs were obtained. FINDINGS: Lungs are clear. No consolidation, pneumothorax, or pleural effusion. The cardiomediastinal silhouette and pulmonary vasculature are normal. Osseous structures are unremarkable. Ribs are intact. No fractures are identified. XR/XR ribs LT min 3V w CXR1V IMPRESSION: Unremarkable left rib examination.
== END 2023-07-14 11:28 | disposition home or self-care (01) ==
LOC: HO.HMGCX 11:27
PROVIDERS: PCP Nurse Practitioner Family; Visit Provider Nurse Practitioner Family
DX: R07.81 Pleurodynia (principal)
CPT/HCPCS: 71101

== ENCOUNTER 2023-08-02 12:53 | Outpatient (REF) | payer OTHER, SELFPAY ==
[2023-08-02 16:13] LABS: MANUAL DIFF FLAG NO
[2023-08-02 16:21] LABS: Basophils Absolute Auto 0.1 X10*3/uL (0.0-0.2); Basophils Percent Auto 0.9 % (0-2); Eosinophils Absolute Auto 0.1 X10*3/uL (0.0-0.4); Eosinophils Percent Auto 2.2 % (0-4); Hematocrit 48.8 % (42.0-52.0); Hemoglobin 16.4 g/dl (14.0-18.0); Imm Gran Abs Auto 0.03 X10*3/uL (0.00-0.03); Imm Gran Pct Auto 0.6 % (0.0-0.4); Lymphocytes Absolute Auto 1.4 X10*3/uL (1.2-4.9); Lymphocytes Percent Auto 24.8 % (20-40); Mean Corpuscular HGB Conc 33.6 g/dl (31.0-36.0); Mean Corpuscular Hemoglobin 31.3 pg (27.0-33.0); Mean Corpuscular Volume 93.1 fL (80.0-98.0); Monocytes Absolute Auto 0.5 X10*3/uL (0.1-1.2); Monocytes Percent Auto 8.6 % (2-11); Neutrophils Absolute Auto 3.4 x10*3/uL (2.0-8.3); Neutrophils Percent Auto 62.9 % (45-73); Platelet Count 218 X10*3/uL (160-400); Red Blood Count 5.24 X10*6/uL (4.60-5.80); Red Cell Distribution Width 14.7 % (11.0-16.0); White Blood Count 5.4 X10*3/uL (4.8-10.8)
[2023-08-02 16:25] LABS: Appearance Urine Clear; Bacteria Urine None Seen (None Seen); Color Urine Orange; Glucose Urine UA Negative (Negative); Hyaline Casts Urine 0-2 /LPF (0-2); Leukocyte Esterase Urine Moderate (2+) (Negative); Nitrite Urine Negative (Negative); Specific Gravity - Urine 1.025 (1.005-1.025); Squamous Epithelial Cell Urine 0-2 /HPF (0-2); UACC Culture Trigger YES; UMIC TRIGGER UACC YES; Urine Blood Trace (Negative); Urine Ketones Trace mg/dL (Negative); Urine Protein Trace mg/dL (Neg-Trace); WBC Urine 21-50 /HPF (0-5)
[2023-08-02 17:51] LABS: Alanine Aminotransferase 36 U/L (0-40); Albumin Level 3.8 g/dL (3.5-5.0); Alkaline Phosphatase 59 U/L (39-117); Anion Gap 12 (12-20); Aspartate Amino Transferase 37 U/L (5-37); Bilirubin Total 1.4 mg/dL (0.0-1.0); Blood Urea Nitrogen 10 mg/dL (9-16); Calcium 8.7 mg/dL (8.4-10.2); Carbon Dioxide 26 mmol/L (22-29); Chloride 105 mmol/L (96-108); Cholesterol 154 mg/dL (<200); Estimated Glomerular Filt Rate > 60; Glucose Fasting 120 mg/dL (60-99); HDL Cholesterol 62 mg/dL (>40); LDL Cholesterol Calculated 77 mg/dL (<100); Potassium 3.8 mmol/L (3.3-5.1); Sodium 139 mmol/L (135-145); TSH reflex Free T4 1.73 uIU/mL (0.32-4.0); Total Protein 6.4 g/dL (6.5-8.0); Triglycerides 77 mg/dL (<150)
== END 2023-08-02 12:54 | disposition home or self-care (01) ==
LOC: HO.HMGCLDS 12:53
PROVIDERS: PCP Nurse Practitioner Family; Visit Provider Nurse Practitioner Family
DX: Z00.00 Encounter for general adult medical examination without abnormal findings (principal); Z13.6 Encounter for screening for cardiovascular disorders; R82.90 Unspecified abnormal findings in urine
CPT/HCPCS: 36415; 80053; 80061; 81001; 84443; 85025; 87086

== ENCOUNTER 2023-08-21 08:57 | Outpatient (REF) | payer OTHER, SELFPAY ==
[2023-08-21 17:32] LABS: Urine Cytology See Pathology rpt
== END 2023-08-21 08:58 | disposition home or self-care (01) ==
LOC: HO.LNP 08:57
PROVIDERS: PCP Nurse Practitioner Family; Visit Provider Nurse Practitioner Family
DX: R31.29 Other microscopic hematuria (principal); Z87.440 Personal history of urinary (tract) infections
CPT/HCPCS: 51798; 81003; 88112

== ENCOUNTER 2023-08-21 08:57 | Outpatient (AMB) | payer OTHER, SELFPAY ==
--- NOTE | 2023-08-21 09:06 | A.OFFVIS_ITS ---
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 Meza. He has a past medical history of nicotine dependence, alcohol dependence, and low-back pain. He presents to the office today as a new patient for ongoing lower urinary tract symptoms. In discussion with the patient today he reports following up with his PCP the beginning of this year for ongoing lower back pain he had been experiencing. He reports he is unsure if this was related to his alcohol consumption and or a fall he experienced around the same time. He reports initially he was given a muscle relaxer with no improvement in lower back pain he had been experiencing. He reports he was then given antibiotics for a potential urinary tract infection and since completion of antibiotic therapy approximately 3 months ago he has since been feeling and doing well. In office urinalysis results reviewed with the patient today. Microscopic hematuria noted. When asked he does report a longstanding history of nicotine dependence over 35 years. He reports smoking approximately 1 pack of cigarettes per day. He otherwise denies any workplace chemical exposure. Discussed at length persistent microscopic hematuria. I discussed reasons for blood in the urine that can include but are not limited to kidney stones, cancer in the urinary tract, BPH, kidney stone disease or inflammatory conditions of the urinary tract. I have discussed workup to include urine cytology, CT urogram, and cystoscopy evaluation. The patient is adamant that he is feeling and doing well and does not wish to undergo any further workup at this time. Discussed potential for delay in treatment. When asked he denies urinary urgency, urinary frequency, incontinence, nocturia, hematuria, dysuria, foul smelling urine, changes to urinary stream, flank pain, fever, and or chills. He is happy with his current voiding parameters. In review of patient's chart it appears PSA 05/17 1.2. He otherwise denies any other issues or concerns at this time. [facility] Medical History Tubulovillous adenoma Hx of low back pain History of colon polyps Nicotine dependence, cigarettes, uncomplicated Surgical History History of hand surgery History of lumbar surgery (~2006) History of lumbar surgery (~2005) History of colonoscopy Family History Maternal Grandfather Substance use disorder Social History Housing: House Alcohol intake: current Alcohol intake frequency: a few times a week Alcohol ty pe: hard liquor Patient Tobacco Use Status: Current everyday Tobacco user Tobacco use type: Cigarette Cigarette Packs Per Day: 1 Cigarettes Per Day: 20.0 Years Smoked: 18 e-Cigarette/Vaping Use: Never Used Second Hand Smoke Exposure: Yes service: No Current occupational status: employed Current occupation: [employer] Current occupational exposures/hazards: Yes Cognitive needs: No Hearing needs: No Vision needs: No Review of Systems Const All systems reviewed & are unremarkable except as noted in HPI and below Physical Exam Const General: cooperative, comfortable, no acute distress, well developed, alert and awake Orientation/consciousness: patient oriented x3 HEENT Head: Yes normal to inspection, Yes normocephalic and Yes atraumatic Ears: hearing grossly normal bilaterally Eyes General: appearance normal, both eyes and all related structures Neck Neck: Yes normal visual inspection and Yes trachea midline Chest Chest palpation & inspection: normal inspection of the chest Resp Effort & Inspection: normal respiratory effort and able to speak in complete sentences Cardio Rate: regular rate GI Inspection: Yes normal to inspection General: Yes no CVA tenderness Back/Spine/Pelvis Back: no CVA tenderness Skin General skin exam: no rashes or lesions noted Neuro General: patient oriented x3 Extrem General: Yes normal to inspection Psych Appearance: grossly normal and well kempt Mental Status: mental status grossly normal Speech and movement: Normal speech and movement present and Clear speech present Affect: normal affect Attitude: cooperative Thought process: Normal thought process present Thought content: Normal thought content present Insight: Fair insight present (Psych) Judgement: Fair judgement present (Psych) Office Procedures Post Void Residual Post Residual Void Post Void Residual (PVR): 17 [id number] Void Residual by ultrasound Results AMB Urinalysis, Automated UA Leukoctes 15 Louie/uL Last Edit by Wilfredoe Bress on 08/21/23 09:20 UA Nitrite Negative Last Edit by Brandyce Bress on 08/21/23 09:20 UA Urobilinogen 0.2 mg/dL Last Edit by Brandyce Jaret on 08/21/23 09:20 UA Protein 15 mg/dL Last Edit by Gonzalezyce Jaret on 08/21/23 09:20 UA pH 5.5 Last Edit by Gonzalezyce Jaret on 08/21/23 09:20 UA Blood 10 Lance/uL Last Edit by Brandyce Bress on 08/21/23 09:20 UA Specific [place] 1.030 Last Edit by Loudryce Bress on 08/21/23 09:20 UA Ketone Negative Last Edit by Loudryce Jaret on 08/21/23 09:20 UA Bilirubin 0 mg/dL Last Edit by Gonzalezycjared Raygoza on 08/21/23 09:20 UA Glucose 0 mg/dL Last Edit by Loudrashwini Raygoza on 08/21/23 09:20 Results Reviewed Results Reviewed: Laboratory Last Values Urine pH (Auto) 5.5 08/21/23 09:13 Specific [place] (Auto) 1.030 08/21/23 09:13 Urine Protein (Auto) 15 mg/dL 08/21/23 09:13 Glucose (UA)(Auto) 0 mg/dL 08/21/23 09:13 Urine Ketones (Auto) Negative 08/21/23 09:13 Urine Blood (Auto) 10 Lance/uL 08/21/23 09:13 Urine Nitrite (Auto) Negative 08/21/23 09:13 Urine Bilirubin (Auto) 0 mg/dL 08/21/23 09:13 Urine Urobilinogen (Auto) 0.2 mg/dL 08/21/23 09:13 Leukocyte Esterase (Auto) 15 Louie/uL 08/21/23 09:13 Assessment & Plan Assessment & Plan (1) Microscopic hematuria: Code(s): R31.29 - Other microscopic hematuria Category: Medical (2) Nicotine dependence, cigarettes, uncomplicated: Comment: (current smoker - onset 18yo, 1ppd x 38yrs, 35PYH) Code(s): F17.210 - Nicotine dependence, cigarettes, uncomplicated Category: Medical Plan In office urinalysis results reviewed with the patient today; as noted above; will send for urine cytology. Patient currently denies any bothersome urinary issues or concerns. Discussed further workup of microscopic hematuria in the setting of nicotine dependence to include CT urogram and cystoscopy for evaluation versus surveillance monitoring; risks and benefits of these interventions were discussed at length. Patient reports be happy with current voiding parameters. Discussed, educated, and stressed the importance of limiting/quitting alcohol dependence as well as nicotine dependence for overall health and well-being. Discussed surveillance monitoring and or further workup however patient does not feel this is necessary. Follow-up p.r.n. per patient request; or sooner with any issues, concerns, and or questions. Orders: Orders AMB Post Void Residual by ultrasound Today N39.0 - Urinary tract infection, site not specified AMB Urinalysis Automated Today Z13.9 - Encounter for screening, unspecified Urine Cytology Today R31.29 - Other microscopic hematuria Patient Instructions: The patient had an opportunity to ask questions regarding the treatment plan. All questions were answered. Physical exam, labs, and imaging were discussed and reviewed in detail. As well as risks, benefits, and discussion of treatment choices. No major barriers to understanding were identified. The patient expressed understanding and agreement with the above treatment plan. The patient was made aware they should contact our office by phone for worsening of their current condition, the appearance of new symptoms, or with any questions or concerns. Compliance is encouraged with any medications and follow up testing that is ordered. It is a privilege to be allowed the opportunity to participate in? your urological care.? Again, if you have any questions or concerns If you have any questions or concerns please do not hesitate to contact me. The office is [phone]. This note is constructed using voice recognition software. While every effort has been made to ensure accuracy manager business errors may have been included. Yours sincerely, BENJA Clancy Coding Level of Care Code New Pt Level 3 (23972) Diagnoses Microscopic hematuria R31.29 Nicotine dependence, cigarettes, uncomplicated F17.210 CPT Codes Post Residual Void - PVR CPT Code: 23918-[place] Void Residual by ultrasound ([id number])
== END 2023-08-21 09:31 | disposition home or self-care (01) ==
PROVIDERS: PCP Nurse Practitioner Family; Visit Provider Nurse Practitioner Family
DX: R31.29 Other microscopic hematuria (principal); F17.210 Nicotine dependence, cigarettes, uncomplicated; Z13.9 Encounter for screening, unspecified
CPT/HCPCS: 99203; 99213

== ENCOUNTER 2023-08-31 08:19 | Outpatient (REF) | payer OTHER, SELFPAY ==
--- NOTE | ~2023-08-31 | CT_ITS ---
EXAMINATION: CT LOW-DOSE SCREENING CHEST WITHOUT CONTRAST CLINICAL INFORMATION: Nicotine dependence, cigarettes, uncomplicated. The patient is a current smoker with a 38 pack-year history of smoking. COMPARISON: X-ray chest 07/14/2023. CT chest 02/25/2022. TECHNIQUE: Multidetector volumetric CT imaging of the chest is performed on a Siemens SOMATOM Definition scanner without contrast using low dose technique. Additional 2D coronal and sagittal reformatted images and axial 3D maximum intensity projection (MIP) images are generated on the CT workstation. This CT examination was performed using dose optimization techniques as appropriate, variously including the following: *Automated exposure control *Adjustment of mA and/or kV according to patient size (this includes techniques or standardized protocols for targeted exams where dose is matched to indication/reason for exam; i.e. extremities or head) *Use of iterative reconstruction technique TOTAL EXAM DLP: 62 mGy-cm. CTDIvol: 1.81 mGy. FINDINGS: PULMONARY NODULES: No suspicious pulmonary nodules. Scattered punctate granuloma are seen and unchanged. No new, increasing sized or worrisome pulmonary nodule is seen. LUNGS: Lungs bilaterally symmetrically expanded. There is mild emphysema and bronchial thickening. No effusion or pneumothorax. Central airways patent. MEDIASTINUM: No mediastinal, hilar or axillary adenopathy or free fluid collection. CORONARY ARTERY CALCIFICATION: Trace. THYROID GLAND: Unremarkable to the extent seen. CARDIOVASCULAR STRUCTURES: Aortic and heart size normal. No pericardial effusion. CHEST WALL/AXILLA: Unremarkable. UPPER ABDOMEN: There are benign hepatic cysts. Nodular left adrenal gland measuring -22 Hounsfield units consistent with benignity. No followup needed. Included portions of the solid organs in the upper abdomen unremarkable on noncontrast imaging. OSSEOUS STRUCTURES: No suspicious focal findings. CT/CT lung screening IMPRESSION: No evidence of malignancy. ASSESSMENT: 1. Lung-RADS Category 1: Negative. There are no nodules or there are definitely benign nodules. N/A. 2. Lung-RADS Category S: Negative. There are no clinically significant or potentially clinically significant findings not related to the lungs requiring urgent additional evaluation. RECOMMENDATION: Continued routine annual low-dose CT lung screening in 1 year is recommended. An order for CT CHEST LOW DOSE CANCER SCREENING ([id number]) can be placed.
== END 2023-08-31 08:20 | disposition home or self-care (01) ==
LOC: HO.CT 08:19
PROVIDERS: PCP Nurse Practitioner Family; Visit Provider Nurse Practitioner Family
DX: Z12.2 Encounter for screening for malignant neoplasm of respiratory organs (principal); F17.210 Nicotine dependence, cigarettes, uncomplicated
CPT/HCPCS: 71271

== ENCOUNTER 2024-01-18 11:00 | Outpatient (AMB) | payer OTHER, SELFPAY ==
[2024-01-18 11:02] VITALS: BP 136/82; PULSE 71; O2SAT 94; BMI 30.1
--- NOTE | 2024-01-18 11:02 | A.OFFPC_ITS ---
Vital Signs 01/18/24 11:02 Height 5 ft 11 in Weight 216 lb BMI 30.1 BP 136/82 Blood Pressure Location Lt brachial Position Sitting Pulse 71 Pulse Source Pulse Oximeter Pulse Oximetry (%) 94 Oxygen Delivery Method Room Air Intake Visit Reasons: PE Intake Note: Pt is here today for his annual physical Allergies No Known Allergies Allergy (Verified 01/18/24 11:02) Medication List - Last Reconciled 01/18/24 by [facility] No Known Home Meds Tobacco use date assessed: 01/18/24 Dental Screening Dental Screen Date: 01/18/24 Did you have a dental visit in the last 12 months?: Yes Did you have a dental problem in the last 6 months where you did not have access to dental care?: No Was dental information given to patient?: Patient has dentist HPI PE HPI Details Pt is here for a PE. Will order labs. PSA is up to date. Denies dribbling with urination, weak stream, and frequent nocturia. Due for colon screen, pt has not heard anything about this. Will reach out to GI. Pt also had a liver lesion in 2021 that he was referred for, I do not see that he was seen for this, again, will reach out to GI. He reports some hemorrhoid activity. Pt has a hx of micro hem. He was previously not interested in a workup for this, though he now agrees. Will reach out to urology. Will resubmit CT urogram order. Pt is a smoker, part of the LDCT program. [facility] Medical History Tubulovillous adenoma Hx of low back pain History of colon polyps Nicotine dependence, cigarettes, uncomplicated Surgical History History of hand surgery History of lumbar surgery (~2006) History of lumbar surgery (~2005) History of colonoscopy Family History Maternal Grandfather Substance use disorder Social History Housing: House Alcohol intake: current Alcohol intake frequency: a few times a week Alcohol type: hard liquor Patient Tobacco Use Status: Current everyday Tobacco user Tobacco use type: Cigarette Cigarette Packs Per Day: 1 Cigarettes Per Day: 20.0 Years Smoked: 18 e-Cigarette/Vaping Use: Never Used Second Hand Smoke Exposure: Yes service: No Current occupational status: employed Current occupation: [employer] Current occupational exposures/hazards: Yes Cognitive needs: No Hearing needs: No Vision needs: No Questionnaire PHQ-9 Over the last 2 weeks, how often have you been bothered by any of the following problems? 1. Little interest or pleasure in doing things: several days 2. Feeling down, depressed, or hopeless: several days 3. Trouble falling or staying asleep, or sleeping too much: several days 4. Feeling tired or having little energy: several days 5. Poor appetite or overeating: not at all 6. Feeling bad about yourself - or that you are a failure or have let yourself or your family down: not at all 7. Trouble concentrating on things, such as reading the newspaper or watching television: not at all 8. Moving or speaking so slowly that other people could have noticed. Or the opposite - being so fidgety or restless that you have been moving around a lot more than usual: not at all 9. Thoughts that you would be better off or of hurting yourself in some way: not at all Total score: 4 Depression Screening Interpretation: Negative Depression Screening Done: Yes 02782 - PHQ-9 Billing: Yes Source: Developed by Drs. Omi Buckner, Lacey Warner, Elvin Suttno and colleagues, with an educational celio from [employer]. Thrive Questionnaire Date Thrive assessed: 01/18/24 I am a: Patient What is your living situation today?: I have a steady place to live Within the past 12 months, did the food you bought not last and you didn't have the money to get more?: Never true Within the past 12 months, did you worry whether your food would run out before you got money to buy more?: Never true Do you have trouble paying for medicines?: No Do you have trouble getting transportation to medical appointments?: No Do you have trouble paying your heating and electricity bill?: No Do you have trouble taking care of your child, family member or friend?: No Do you have trouble with day-to-day activities such as bathing, preparing meals, shopping, managing finances, etc.?: No Are you currently unemployed and looking for a job?: No Are you interested in more education?: Yes Please select the resources that you would like help with: None Currently or been in a relationship where the following occur: No concerns reported THRIVE Score: 0 AUDIT C Alcohol Use Questionnaire (AUDIT-C) 1. How often do you have a drink containing alcohol?: 2-3 times a week 2. How many drinks containing alcohol do you have on a typical day when you are drinking?: 3 or 4 3. How often do you have six or more drinks on one occasion?: Monthly Total Score: 6 Score Reviewed/Action Taken: Yes ELICEO-7 AMB Questionnaire ELICEO-7 Date ELICEO - 7 assessed: 01/18/24 Feeling nervous, anxious, or on edge: 0 = Not at all Not being able to stop or control worryin = Not at all Worrying too much about different things: 0 = Not at all Trouble relaxin = Not at all Being so restless that it is hard to sit still: 0 = Not at all Becoming easily annoyed or irritable: 0 = Not at all Feeling afraid as if something awful might happen: 0 = Not at all Total ELICEO-7 score (0-4 normal; 5-9 mild; 10-14 moderate; 15-21 severe): 0 Source: Developed by Drs. Omi Buckner, Lacey Warner, Elvin Sutton and colleagues, with an educational celio from [employer]. ELICEO-7 Assessment Billing ELICEO-7 Assessment Tool: ELICEO-7 Assessment 81239 Review of Systems Const Denies chills and Denies fever(s) Eyes Denies blurry vision ENT Denies vertigo, Denies dizziness and Denies sore throat Card Denies chest pain at rest, Denies chest pain with activity, Denies diaphoresis, Denies dyspnea and Denies dyspnea on exertion Resp Denies cough, Denies dyspnea, Denies dyspnea on exertion and Denies wheezing GI Denies abdominal pain, Denies melena, Denies hematochezia, Denies constipation, Denies diarrhea and Denies loose stools Denies hematuria Musc Denies numbness and Denies tingling Skin/Breast Denies lesions Neuro Denies vertigo, Denies dizziness, Denies numbness and Denies tingling Psych Denies anxiety, Denies depression, Denies homicidal ideation, Denies suicidal ideation and Denies other (substance abuse) Aller/Immun Denies wheezing Physical exam (Primary Care) Vital Signs: Last Vital Signs Pulse 71 01/18/24 11:02 BP 136/82 01/18/24 11:02 Pulse Ox 94 01/18/24 11:02 Oxygen Delivery Method Room Air 01/18/24 11:02 BMI result Body Mass Index 30.1 Tobacco/Smoking Status: Tobacco use Status Tobacco use date assessed 01/18/24 01/18/24 11:03 Patient Tobacco Use Status Current everyday Tobacco 01/18/24 11:03 Tobacco use type Cigarette 01/18/24 11:03 e-Cigarette/Vaping Use Never Used 01/18/24 11:03 PHQ-9: PHQ-9 Score PHQ-9: Total score 4 01/18/24 11:42 Depression Screening Interpretation: Negative Thrive Assessment: Date of Thrive Assessment Date Thrive assessed 01/18/24 01/18/24 11:03 Currently or been in a relationship where the following occur: No concerns reported Const General: cooperative Nutritional Appearance: well nourished Orientation/consciousness: patient oriented x3 HENMT Head: Yes normal to inspection, Yes normocephalic and Yes atraumatic Ears: TM's normal bilaterally Eyes General: appearance normal, both eyes and all related structures Alignment and Position: alignment normal and position normal Neck Neck: Yes normal visual inspection, Yes no lymphadenopathy and Yes supple Resp Effort & Inspection: normal respiratory effort Auscultation: clear to auscultation bilaterally Cardio Rate: regular rate Rhythm: regular rhythm Heart sounds: S1 normal heart sound present, S2 normal heart sound present and no murmurs GI Palpation (GI): Soft to palpation and nontender Auscultation: normal bowel sounds Other: CHE: prostate slightly enlarged, no nodules palpated, smooth Male General Exam: Yes normal external exam Penis: normal penis Scrotum: scrotum normal, testes descended bilaterally and no inguinal hernias Testes: no testicular mass Skin Other: left cheek with round, papular lesion, darker/skin colored pigmentation Rashes: no rashes Neuro General: patient oriented x3, moves all extremities, no focal motor deficits and deep tendon reflexes 2+ bilaterally Romberg Test: Negative Psych Appearance: grossly normal Mental Status: mental status grossly normal Speech and movement: Normal speech and movement present Affect: normal affect Attitude: cooperative Thought process: Normal thought process present Thought content: Normal thought content present Insight: Good insight present (Psych) Judgement: Good judgement present (Psych) Immunizations pneumoc 20-tae conj-dip cr(PF) 0.5 mL IM syringe Performing Provider: BENJA Uriostegui Performing Location: [facility] Administered by: ELIZABETH Santana on 01/18/24 11:42 Dose Route Admin Location Dispensed Lot Number Expiration Date FORMERLY [facility] Employee Relations Assistant 0.5 mL IM Left Deltoid 0.5 mL [id number] 10/21/24 3875-8979-49 [employer] VIS Given Date VIS Provided VIS Publication Date 01/18/24 Single Vaccine 21 Eligibility Eligibility Date Funding Source Not [facility] Eligible 01/18/24 Private Assessment and Plan Assessment & Plan (1) Physical exam, annual: Code(s): Z00.00 - Encounter for general adult medical examination without abnormal findings Plan: Labs ordered (2) Facial lesion: Code(s): L98.9 - Disorder of the skin and subcutaneous tissue, unspecified Plan: Referred to derm (3) Screening PSA (prostate specific antigen): Code(s): Z12.5 - Encounter for screening for malignant neoplasm of prostate Plan: PSA ordered (4) Microscopic hematuria: Code(s): R31.29 - Other microscopic hematuria Plan: CT urogram reordered, reaching out to urology (5) Liver lesion: Comment: (1.3 x 1.4 cm solid hyperechoic lesion in left lobe of liver on 01/2022 US) Code(s): K76.9 - Liver disease, unspecified Plan: reaching out to GI for follow up (colon screen and liver lesion follow up) (6) Smoker: Code(s): F17.200 - Nicotine dependence, unspecified, uncomplicated Plan: already part of LDCT program, encouraged to quit smoking Plan The patient agreed to the use of a medical registrar for this encounter. Scribed for BENJA Rivera by alejandro Mitchell scribe, on 01/18/2024 at 11:15 EST. Orders: Orders Complete Blood Count Auto Diff Today Z00.00 - Encounter for general adult medical examination without abnormal findings Comprehensive Velarde. Panel Fast Today Z00.00 - Encounter for general adult medical examination without abnormal findings TSH reflex Free T4 Today Z00.00 - Encounter for general adult medical examination without abnormal findings UA CC w/rflx Micro + Cult Today Z00.00 - Encounter for general adult medical examination without abnormal findings Pneumococcal 20 Immunization Today Z23 - Encounter for immunization Lipid Panel Today Z00.00 - Encounter for general adult medical examination without abnormal findings Prostate Specific Antigen Scr Today Z12.5 - Encounter for screening for malignant neoplasm of prostate Urine Cytology Today R31.29 - Other microscopic hematuria Referrals Dermatology Referral L98.9 - Disorder of the skin and subcutaneous tissue, unspecified Coding Level of Care Code Est Pt Prev Care 40-64y(83407) Diagnoses Physical exam, annual Z00.00 Facial lesion L98.9 Screening PSA (prostate specific antigen) Z12.5 Microscopic hematuria R31.29 Liver lesion K76.9 Smoker F17.200 Additional Codes ELICEO-7 Assessment Billing - ELICEO-7 Assessment Tool: ELICEO-7 Assessment 40924 ([id number])
== END 2024-01-18 11:44 | disposition home or self-care (01) ==
PROVIDERS: PCP Nurse Practitioner Family; Visit Provider Nurse Practitioner Family
DX: Z00.00 Encounter for general adult medical examination without abnormal findings (principal); L98.9 Disorder of the skin and subcutaneous tissue, unspecified; Z12.5 Encounter for screening for malignant neoplasm of prostate; R31.29 Other microscopic hematuria; K76.9 Liver disease, unspecified; F17.200 Nicotine dependence, unspecified, uncomplicated; Z23 Encounter for immunization

== ENCOUNTER → 2024-01-18 11:00 | Outpatient (BNVA) | payer OTHER, SELFPAY | PROVIDERS: PCP Nurse Practitioner Family; Visit Provider Nurse Practitioner Family | DX: Z00.01 Encounter for general adult medical examination with abnormal findings (principal); L98.9 Disorder of the skin and subcutaneous tissue, unspecified; R31.29 Other microscopic hematuria; K76.9 Liver disease, unspecified; F17.200 Nicotine dependence, unspecified, uncomplicated; Z23 Encounter for immunization | CPT/HCPCS: 90471; 90677; 96127 ==

== ENCOUNTER 2024-05-06 15:36 | Outpatient (AMB) | payer OTHER, SELFPAY ==
--- NOTE | 2024-05-06 15:50 | MHC.OFFVIS ---
Vital Signs 05/06/24 15:51 Height 5 ft 11 in Weight 211 lb 10.3 oz BMI 29.5 BP 129/83 Blood Pressure Location Rt brachial Position Sitting Pulse 84 Intake Visit Reasons: Pre colonoscopy Intake Note: Patient in office today for colonoscopy screening. CC: Patient reports drinking too much recently and having some right sided abdominal pain. Denies other GI symptoms. Contracting Specialist Required: No Accompanied by: Self / Same As Patient Allergies No Known Allergies Allergy (Verified 05/06/24 15:54) HPI HPI Pre colonoscopy: Details: LAST VISIT 10/10/2022 Tubulovillous adenoma Tubular villous adenoma found as mentioned above in HPI. Patient will need to return for colorectal screening in 8-12 months. Patient denies any melena, hematochezia, unintentional weight loss or ribbon like stools. Status post colonoscopy Denies any ill effects from the prep, anesthesia or procedure itself. Will return in 6 months to discuss colonoscopy, sooner if clinically necessary. Patient is agreeable to this plan and verbalizes understanding of instructions. He was given the opportunity to ask questions and all questions answered. ? Thank you for allowing me to participate in his care Plan Medications New polyethylene glycol 3350 (Miralax) 17 grams PO DAILY 510 grams 2RF TODAY'S VISIT Patient is here today for follow-up and to discuss going for colonoscopy. Patient was supposed to follow-up year and a half ago. Last seen in September of 2022 and was supposed to follow-up in March to go for colonoscopy as tubulovillous adenoma and tubular adenoma found large multiple polyps most of them in the rectum. Patient denies any melena, hematochezia, unintentional weight loss or ribbon like stools. Patient denies any issues with anesthesia in the past. Denies any history of sleep apnea. Denies any abdominal pain or discomfort. Patient does admit that he is drinking alcohol and reports abdominal pain after he drinks. Patient reports that he drinks on the days when he is off. Denies daily drinking. Patient denies any cardiac or respiratory symptoms. Not on any anticoagulation medication. Patient denies any GI concerning symptoms today. [facility] Medical History Tubulovillous adenoma Hx of low back pain History of colon polyps Nicotine dependence, cigarettes, uncomplicated Surgical History History of hand surgery History of lumbar surgery (~2006) History of lumbar surgery (~2005) History of colonoscopy Family History Maternal Grandfather Substance use disorder Social History Housing: House Alcohol intake: current Alcohol intake frequency: a few times a week Alcohol type: hard liquor Patient Tobacco Use Status: Current everyday Tobacco user Tobacco use type: Cigarette Cigarette Packs Per Day: 1 Cigarettes Per Day: 20.0 Years Smoked: 18 e-Cigarette/Vaping Use: Never Used Second Hand Smoke Exposure: Yes service: No Current occupational status: employed Current occupation: [email or web address] Current occupational exposures/hazards: Yes Cognitive needs: No Hearing needs: No Vision needs: No Review of Systems Const Denies weight gain and Denies weight loss ENT Reports no additional complaints, Denies dysphagia and Denies odynophagia Card Reports no additional complaints Resp Reports no additional complaints GI Denies abdominal pain, Denies belching, Denies melena, Denies bloating, Denies change in bowel habits, Denies dysphagia, Denies excessive flatus, Denies dyspepsia, Denies heartburn, Denies diarrhea, Denies loose stools, Denies nausea, Denies odynophagia and Denies vomiting Reports no additional complaints Musc Reports no additional complaints Neuro Reports no additional complaints Psych Reports no additional complaints Endo Reports no additional complaints Physical Exam Vital Signs: Last Vital Signs Pulse 84 05/06/24 15:51 BP 129/83 05/06/24 15:51 BMI result Body Mass Index 29.5 Const General: healthy appearing, no acute distress and well developed Nutritional Appearance: obese Orientation/consciousness: patient oriented x3 Resp Effort & Inspection: normal respiratory effort, able to speak in complete sentences, no tracheal deviation and symmetric chest movement Auscultation: clear to auscultation bilaterally Cardio Rate: regular rate GI Inspection: Yes normal to inspection, No distended and Yes obesity Palpation (GI): Soft to palpation, not firm, nontender and No hepatosplenomegaly present Auscultation: normal bowel sounds General: Yes no CVA tenderness Back/Spine/Pelvis Back: no CVA tenderness Skin General skin exam: elasticity normal, turgor normal and dry skin Neuro General: patient oriented x3 Psych Appearance: grossly normal Mental Status: mental status grossly normal Assessment & Plan Assessment & Plan (1) Tubulovillous adenoma: Code(s): D36.9 - Benign neoplasm, unspecified site Category: Medical (2) Elevated liver enzymes: Code(s): R74.8 - Abnormal levels of other serum enzymes Category: Medical (3) Liver lesion: Code(s): K76.9 - Liver disease, unspecified Category: Medical (4) Screen for colon cancer: Code(s): Z12.11 - Encounter for screening for malignant neoplasm of colon Plan What to expect before during and after procedure discussed with patient. Stressed the importance of good bowel prep with him. Patient denies any issues with anesthesia in the past. No history of sleep apnea. Not on any anticoagulation medication. No issues with anesthesia in the past. Patient had elevated liver enzymes in the past. History of liver lesion most likely hemangioma, we order ultrasound. Patient will follow-up with us after the procedure. Message sent to surgical schedulers to book procedure for patient. He is agreeable to current plan of care and verbalizes understanding of instructions. He was given the opportunity to ask questions and all questions answered. Orders: Orders US abdomen limited Today R79.89 - Other specified abnormal findings of blood chemistry Medications: New bisacodyl (Dulcolax (bisacodyl)) Start taking 2 tablet every night 7 days before the procedure and 1 day before procedure take 4 tablets at noon time followed by MiraLax prep 10 mg (2 x 5 mg) PO BEDTIME 16 tabs 0RF Z12.11 - Encounter for screening for malignant neoplasm of colon polyethylene glycol 3350 (Miralax) As directed by gastro[facility]ology department at [facility] 238 grams PO ONCE 238 grams 0RF Z12.11 - Encounter for screening for malignant neoplasm of colon Coding Level of Care Code Est Pt Level 3 (13854) Diagnoses Tubulovillous adenoma D36.9 Elevated liver enzymes R74.8 Liver lesion K76.9 Screen for colon cancer Z12.11 Time Spent (min) 30 Comment 20 minutes spent with patient and additional 10 minutes spent reviewing his records
[2024-05-06 15:51] VITALS: BP 129/83; PULSE 84; BMI 29.5
== END 2024-05-06 16:18 | disposition home or self-care (01) ==
PROVIDERS: PCP Nurse Practitioner Family; Visit Provider Nurse Practitioner Family
DX: Z01.818 Encounter for other preprocedural examination (principal); Z12.11 Encounter for screening for malignant neoplasm of colon; Z86.0101 Personal history of adenomatous and serrated colon polyps; K76.9 Liver disease, unspecified; R74.8 Abnormal levels of other serum enzymes
CPT/HCPCS: 99212

== ENCOUNTER → 2024-05-06 15:36 | Outpatient (BNVA) | payer OTHER, SELFPAY | PROVIDERS: PCP Nurse Practitioner Family; Visit Provider Nurse Practitioner Family ==

== ENCOUNTER 2024-05-08 10:24 | Outpatient (REF) | payer OTHER, SELFPAY ==
[2024-05-08 13:00] LABS: MANUAL DIFF FLAG NO
[2024-05-08 13:13] LABS: Urine Cytology See Pathology rpt
[2024-05-08 13:14] LABS: Appearance Urine Clear; Color Urine Yellow; Glucose Urine UA Negative (Negative); Leukocyte Esterase Urine Moderate (2+) (Negative); Nitrite Urine Negative (Negative); UMIC TRIGGER UACC YES; Urine Blood Negative (Negative); Urine Ketones Negative (Negative); Urine Protein Negative (Neg-Trace)
[2024-05-08 13:15] LABS: Basophils Percent Auto 0.5 % (0-2); Eosinophils Absolute Auto 0.1 X10*3/uL (0.0-0.4); Eosinophils Percent Auto 1.3 % (0-4); Hemoglobin 16.8 g/dl (14.0-18.0); Imm Gran Abs Auto 0.02 X10*3/uL (0.00-0.03); Imm Gran Pct Auto 0.3 % (0.0-0.4); Lymphocytes Absolute Auto 1.2 X10*3/uL (1.2-4.9); Lymphocytes Percent Auto 19.4 % (20-40); Mean Corpuscular HGB Conc 32.9 g/dl (31.0-36.0); Mean Corpuscular Hemoglobin 31.1 pg (27.0-33.0); Mean Corpuscular Volume 94.3 fL (80.0-98.0); Mean Platelet Volume 9.9 fL (9.4-12.4); Monocytes Absolute Auto 0.6 X10*3/uL (0.1-1.2); Monocytes Percent Auto 9.8 % (2-11); Neutrophils Absolute Auto 4.2 x10*3/uL (2.0-8.3); Neutrophils Percent Auto 68.7 % (45-73); Platelet Count 204 X10*3/uL (160-400); Red Blood Count 5.41 X10*6/uL (4.60-5.80); Red Cell Distribution Width 14.2 % (11.0-16.0); White Blood Count 6.1 X10*3/uL (4.8-10.8)
[2024-05-08 13:30] LABS: Bacteria Urine None Seen (None Seen); Hyaline Casts Urine 0-2 /LPF (0-2); RBC Urine 0-2 /HPF (0-2); Squamous Epithelial Cell Urine 0-2 /HPF (0-2); UACC Culture Trigger YES; WBC Urine 0-5 /HPF (0-5)
[2024-05-08 13:42] LABS: Alanine Aminotransferase 24 U/L (0-40); Albumin Level 4.1 g/dL (3.5-5.0); Alkaline Phosphatase 65 U/L (39-117); Anion Gap 9 (12-20); Aspartate Amino Transferase 29 U/L (5-37); Bilirubin Total 1.1 mg/dL (0.0-1.0); Blood Urea Nitrogen 12 mg/dL (9-16); Calcium 8.8 mg/dL (8.4-10.2); Carbon Dioxide 30 mmol/L (22-29); Chloride 105 mmol/L (96-108); Cholesterol 155 mg/dL (<200); Estimated Glomerular Filt Rate > 60; Glucose Fasting 113 mg/dL (60-99); HDL Cholesterol 65 mg/dL (>40); LDL Cholesterol Calculated 74 mg/dL (<100); Potassium 3.9 mmol/L (3.3-5.1); Sodium 140 mmol/L (135-145); Total Protein 6.9 g/dL (6.5-8.0); Triglycerides 82 mg/dL (<150)
[2024-05-08 13:44] LABS: Prostate Specific Antigen Scr 1.74 ng/mL (<0.05-4.0)
[2024-05-08 13:58] LABS: TSH reflex Free T4 1.48 uIU/mL (0.32-4.0)
== END 2024-05-08 10:25 | disposition home or self-care (01) ==
LOC: HO.HMGCLDS 10:24
PROVIDERS: PCP Nurse Practitioner Family; Visit Provider Nurse Practitioner Family
DX: Z00.00 Encounter for general adult medical examination without abnormal findings (principal); R31.29 Other microscopic hematuria; Z12.5 Encounter for screening for malignant neoplasm of prostate
CPT/HCPCS: 36415; 80053; 80061; 81001; 84153; 84443; 85025; 87086; 88112

== ENCOUNTER → 2024-05-29 10:17 | Outpatient (REF) | payer OTHER, SELFPAY ==
--- NOTE | ~2024-05-29 | US_ITS ---
CLINICAL HISTORY: R79.89 - Other specified abnormal findings of blood chemistry US abdomen limited Comparison: None Findings: The visualized pancreas is normal. The aorta and inferior vena cava are normal caliber. The liver is slightly heterogeneous. There is a hypoechoic structure in the left liver measuring 1.4 x 1.4 x 1.5 cm. Additional small cysts are present within the liver. There is no intrahepatic bile duct dilatation. The common duct is 3 mm in diameter. The gallbladder wall demonstrates focal thickening up to 0.8 cm. No gallstones identified.. There is no sonographic Malcolm sign. The main portal vein is antegrade. The right kidney is 10.1 cm in length. No ascites. IMPRESSION: 1.4 x 1.4 x 1.5 cm hypoechoic structure in the left liver of unclear etiology. Follow-up three-phase CT may be helpful for further characterization if clinically indicated. Focal area of gallbladder wall thickening with no evidence of cholelithiasis or ultrasound evidence of cholecystitis. This document has been electronically signed by: Davy Rogers MD, PHD on 05/30/2024 05:01:15
== END | disposition home or self-care (01) ==
LOC: HO.US 10:17
PROVIDERS: PCP Nurse Practitioner Family; Visit Provider Nurse Practitioner Family
DX: R79.89 Other specified abnormal findings of blood chemistry (principal)
CPT/HCPCS: 76705

== ENCOUNTER → 2024-05-29 10:19 | Outpatient (BNV) | payer OTHER, SELFPAY | PROVIDERS: PCP Nurse Practitioner Family; Visit Provider General Practice | DX: R79.89 Other specified abnormal findings of blood chemistry (principal) | CPT/HCPCS: 76705 ==

== ENCOUNTER 2024-07-03 12:44 | Outpatient (REF) | payer OTHER, SELFPAY ==
[2024-07-03 16:40] LABS: Bilirubin Total 0.9 mg/dL (0.0-1.0); Estimated Glomerular Filt Rate > 60
== END 2024-07-03 12:45 | disposition home or self-care (01) ==
LOC: HO.HMGCLDS 12:44
PROVIDERS: PCP Nurse Practitioner Family; Visit Provider Nurse Practitioner Family
DX: R10.11 Right upper quadrant pain (principal)
CPT/HCPCS: 36415; 82247; 82565

== ENCOUNTER 2024-07-12 08:37 | Outpatient (REF) | payer OTHER, SELFPAY ==
--- NOTE | ~2024-07-12 | CT_ITS ---
CLINICAL HISTORY: K76.9 - Liver disease, unspecified CT abdomen with and without contrast Comparison: 02/21/2022, 05/29/2024 Findings: No consolidation or effusion. Hepatic lesions, possible cysts and enhancing left lobe mass, are unchanged. Otherwise unremarkable gallbladder and solid organs. No urolithiasis. No bowel obstruction, pneumoperitoneum, or pneumatosis. The bones are intact. IMPRESSION: Stable hepatic lesions. This document has been electronically signed by: Rey Napier MD on 07/13/2024 07:37:39
[2024-07-12] MEDS: iohexoL 350 MG/ML 100 ML INFUS..BTL IV (09:31)
== END 2024-07-12 08:38 | disposition home or self-care (01) ==
LOC: HO.CT 08:37
PROVIDERS: PCP Nurse Practitioner Family; Visit Provider Nurse Practitioner Family
DX: K76.9 Liver disease, unspecified (principal)
CPT/HCPCS: 74170; Q9967

== ENCOUNTER → 2024-07-12 08:40 | Outpatient (BNV) | payer OTHER, SELFPAY | PROVIDERS: PCP Nurse Practitioner Family; Visit Provider Specialist | DX: K76.9 Liver disease, unspecified (principal) | CPT/HCPCS: 74170 ==

== ENCOUNTER 2024-07-22 11:28 | Outpatient (AMB) | payer OTHER, SELFPAY ==
--- NOTE | 2024-07-22 11:34 | A.OFFPC_ITS ---
Vital Signs 07/22/24 11:35 Height 5 ft 11 in Weight 213 lb BMI 29.7 BP 130/80 Blood Pressure Location Lt brachial Position Sitting Pulse 80 Pulse Source Pulse Oximeter Pulse Oximetry (%) 96 Oxygen Delivery Method Room Air Intake Visit Reasons: 6 month follow up Flexographic Press Set Up Operator Required: No Accompanied by: Self / Same As Patient Allergies No Known Allergies Allergy (Verified 07/22/24 11:35) Tobacco use date assessed: 07/22/24 Dental Screening Dental Screen Date: 07/22/24 Did you have a dental visit in the last 12 months?: Yes Did you have a dental problem in the last 6 months where you did not have access to dental care?: No Was dental information given to patient?: Patient has dentist HPI 6 month follow up HPI Details Chief Complaint The patient presents for a generalized follow-up. History of Present Illness The patient is a 58-year-old male presenting for a generalized follow-up. His anxiety symptoms have decreased following his recent decision to resign from his job, allowing for a less stressful lifestyle at present. He anticipates taking time off before re-engaging with the workforce. Persistent lower back pain remains a concern, with a history suggesting chronicity despite the absence of an explicit onset date or inciting event. The patient has been advised to apply heat and perform stretching exercises to manage the pain. Despite being aware of the detrimental effects, the patient continues to smoke. However, no specific cessation measures were undertaken or discussed during this visit. Denies any blood in his urine, does recognize he should follow up with urology. Social History - Employment: Recently resigned from job to manage stress and anxiety. - Substance Use: Continues to smoke, scott re of associated risks. Health Maintenance - Low dose CT scans have been scheduled. - Colon screening has been scheduled. Review of Systems - Respiratory: Reports smoking. - Musculoskeletal: Reports lower back pa in. Physical Exam General: Cooperative, healthy appearing, comfortable, no acute distress and well developed Orientation: Patient oriented x3 Limitations: No limitations Head: Normal to inspection Ears: Hearing grossly normal bilaterally Nose: Normal external nose present Face and sinus: Normal facial exam Eyes: Appearance normal, both eyes and all related structures Neck: Normal visual inspection and Yes full ROM Respiratory: Slightly diminished respiratory effort but able to speak in complete sentences. Clear to auscultation bilaterally Cardiovascular: Regular rate and rhythm. Normal S1 and S2 GI: Normal to inspection. Soft to palpation and nontender Skin: No rashes or lesions noted Neuro: Patient oriented x3 Extremities: Normal to inspection Results Plan To manage tobacco use disorder, I have arranged for low-dose CT scan screening, and a colonoscopy is scheduled for health maintenance. I have advised the patient to regularly practice stretching exercises combined with heat application for managing lower back pain. The recent resignation has helped ease anxiety, and a positive outlook was observed. Long-term health goals include lifestyle improvements, particularly smoking cessation. Discussion Notes During the conversation with the patient, we discussed the importance of addressing tobacco use disorder and outlined a scheduled low-dose CT scan as a proactive health measure. I scheduled a colonoscopy to maintain screening practices for colorectal health. We also discussed the current management plan for lower back pain, emphasizing stretching and heat application as non- pharmacological interventions. The patient demonstrated awareness of smoking risks and acknowledged the need for potential lifestyle alterations. I highlighted the significance of his reduced anxiety following job resignation, positively reinforcing his mental health trajectory. Possible future avenues include smoking cessation strategies discussed briefly. Patient Instructions - Continue with stretching and apply hea t to lower back as needed. - Attend scheduled low-dose CT and colon oscopy screenings. - Consider reducing or quitting smoking, despite awareness of its health risks. - Maintain a positive outlook and utiliz e time off work to manage stress and anxiety. [facility] Medical History Tubulovillous adenoma Hx of low back pain History of colon polyps Nicotine dependence, cigarettes, uncomplicated Surgical History History of hand surgery History of lumbar surgery (~2006) History of lumbar surgery (~2005) History of colonoscopy Family History Maternal Grandfather Substance use disorder Social History Housing: House Alcohol intake: current Alcohol intake frequency: a few times a week Alcohol type: hard liquor Patient Tobacco Use Status: Current everyday Tobacco user Tobacco use type: Cigarette Cigarette Packs Per Day: 1 Cigarettes Per Day: 20.0 Years Smoked: 18 Packs Per Year: 18 Packs per year/per ci.00 e-Cigarette/Vaping Use: Never Used Second Hand Smoke Exposure: Yes service: No Current occupational status: employed Current occupation: [employer] Current occupational exposures/hazards: Yes Cognitive needs: No Hearing needs: No Vision needs: No Questionnaire PHQ-9 Over the last 2 weeks, how often have you been bothered by any of the following problems? 1. Little interest or pleasure in doing things: not at all 2. Feeling down, depressed, or hopeless: not at all 3. Trouble falling or staying asleep, or sleeping too much: not at all 4. Feeling tired or having little energy: several days 5. Poor appetite or overeating: several days 6. Feeling bad about yourself - or that you are a failure or have let yourself or your family down: not at all 7. Trouble concentrating on things, such as reading the newspaper or watching television: not at all 8. Moving or speaking so slowly that other people could have noticed. Or the opposite - being so fidgety or restless that you have been moving around a lot more than usual: not at all 9. Thoughts that you would be better off or of hurting yourself in some way: not at all Total score: 2 Depression Screening Interpretation: Negative Depression Screening Done: Yes 93762 - PHQ-9 Billing: Yes Source: Developed by Drs. Omi Buckner, Lacey Warner, Elvin Sutton and colleagues, with an educational celio from [employer]. Thrive Questionnaire Date Thrive assessed: 07/22/24 I am a: Patient What is your living situation today?: I have a steady place to live Within the past 12 months, did the food you bought not last and you didn't have the money to get more?: Never true Within the past 12 months, did you worry whether your food would run out before you got money to buy more?: Never true Do you have trouble paying for medicines?: No Do you have trouble getting transportation to medical appointments?: No Do you have trouble paying your heating and electricity bill?: No Do you have trouble taking care of your child, family member or friend?: No Do you have trouble with day-to-day activities such as bathing, preparing meals, shopping, managing finances, etc.?: No Are you currently unemployed and looking for a job?: Yes Are you interested in more education?: Yes Please select the resources that you would like help with: Job search/training and Education Currently or been in a relationship where the following occur: No concerns reported THRIVE Score: 0 AUDIT C Alcohol Use Questionnaire (AUDIT-C) 1. How often do you have a drink containing alcohol?: 2-4 times a month 2. How many drinks containing alcohol do you have on a typical day when you are drinking?: 3 or 4 3. How often do you have six or more drinks on one occasion?: Less than monthly Total Score: 4 Score Reviewed/Action Taken: Yes ELICEO-7 AMB Questionnaire ELICEO-7 Date ELICEO - 7 assessed: 07/22/24 Feeling nervous, anxious, or on edge: 0 = Not at all Not being able to stop or control worryin = Not at all Worrying too much about different things: 0 = Not at all Trouble relaxin = Not at all Being so restless that it is hard to sit still: 0 = Not at all Becoming easily annoyed or irritable: 0 = Not at all Feeling afraid as if something awful might happen: 0 = Not at all Total ELICEO-7 score (0-4 normal; 5-9 mild; 10-14 moderate; 15-21 severe): 0 Source: Developed by Drs. Omi Buckner, Lacey Warner, Elvin Sutton and colleagues, with an educational celio from [employer]. ELICEO-7 Assessment Billing ELICEO-7 Assessment Tool: ELICEO-7 Assessment 37011 Physical exam (Primary Care) Vital Signs: Last Vital Signs Pulse 80 07/22/24 11:35 BP 130/80 07/22/24 11:35 Pulse Ox 96 07/22/24 11:35 Oxygen Delivery Method Room Air 07/22/24 11:35 BMI result Body Mass Index 29.7 Tobacco/Smoking Status: Tobacco use Status Tobacco use date assessed 07/22/24 07/22/24 11:36 Patient Tobacco Use Status Current everyday Tobacco 07/22/24 11:36 Tobacco use type Cigarette 07/22/24 11:36 e-Cigarette/Vaping Use Never Used 07/22/24 11:36 PHQ-9: PHQ-9 Score PHQ-9: Total score 2 07/22/24 11:38 Depression Screening Interpretation: Negative Thrive Assessment: Date of Thrive Assessment Date Thrive assessed 07/22/24 07/22/24 11:36 Currently or been in a relationship where the following occur: No concerns reported Coding Level of Care Code Est Pt Level 3 (44361) Diagnoses Nicotine dependence, cigarettes, uncomplicated F17.210 Microscopic hematuria R31.29 Additional Codes ELICEO-7 Assessment Billing - ELICEO-7 Assessment Tool: ELICEO-7 Assessment 99964 ([id number]) PHQ-9 - 69119 - PHQ-9 Billing: Yes ([id number]) Assessment & Plan Assessment & Plan (1) Nicotine dependence, cigarettes, uncomplicated: Comment: (current smoker - onset 18yo, 1ppd x 38yrs, 35PYH) Code(s): F17.210 - Nicotine dependence, cigarettes, uncomplicated Category: Medical (2) Microscopic hematuria: Code(s): R31.29 - Other microscopic hematuria Category: Medical Plan . Orders: Orders Complete Blood Count Auto Diff Today M54.50 - Low back pain, unspecified UA CC w/rflx Micro + Cult Today M54.50 - Low back pain, unspecified Comprehensive [place]. Panel Fast Today M54.50 - Low back pain, unspecified TSH reflex Free T4 Today M54.50 - Low back pain, unspecified Lipid Panel Today M54.50 - Low back pain, unspecified
[2024-07-22 11:35] VITALS: BP 130/80; PULSE 80; O2SAT 96; BMI 29.7
== END 2024-07-22 12:28 | disposition home or self-care (01) ==
PROVIDERS: PCP Nurse Practitioner Family; Visit Provider Nurse Practitioner Family
DX: F17.210 Nicotine dependence, cigarettes, uncomplicated (principal); R31.29 Other microscopic hematuria

== ENCOUNTER → 2024-07-22 11:28 | Outpatient (BNVA) | payer OTHER, SELFPAY | PROVIDERS: PCP Nurse Practitioner Family; Visit Provider Nurse Practitioner Family | DX: R31.29 Other microscopic hematuria (principal); F17.210 Nicotine dependence, cigarettes, uncomplicated | CPT/HCPCS: 96127; 99212 ==

== ENCOUNTER 2024-08-21 08:14 | Day surgery (SDC) | payer MEDICAID, SELFPAY ==
[2024-08-19 14:33] VITALS: BMI 29.7
--- NOTE | 2024-08-20 09:13 | P.CONAN_ITS ---
Documented by User: Rachael Thakkar NP 08/20/24 09:14 HPI - Anesthesia Eval Consult details Narrative: 58yo M for Colonoscopy PMFSH Active Problems Active Problems: All Active Problems Facial lesion (Acute) Fall (Acute) Rib pain (Acute) Microscopic hematuria (Acute) Tubulovillous adenoma (Acute) Muscle spasm (Acute) Low back pain (Acute) UTI (urinary tract infection) (Acute) Cerumen impaction (Acute) Elevated liver enzymes (Acute) Liver lesion (Acute) Liver lesion (Acute) Elevated bilirubin (Acute) History of colon polyps (Acute) Nicotine dependence, cigarettes, uncomplicated (Acute) Past Medical History Medical History Tubulovillous adenoma Hx of low back pain History of colon polyps Nicotine dependence, cigarettes, uncomplicated Family History Family History Maternal Grandfather Substance use disorder Family history of problems with anesthesia: No Surgical History Surgical History History of hand surgery History of lumbar surgery (~2006) History of lumbar surgery (~2005) History of colonoscopy History of Problems with Anesthesia: No Social History Social History Housing: House Are you a primary healthcare business analyst to a significant other at home: No Do you presently have visiting nurse or other home services: No Alcohol intake: current Alcohol intake frequency: a few times a week Alcohol type: hard liquor Patient Tobacco Use Status: Current everyday Tobacco user Tobacco use type: Cigarette Cigarette Packs Per Day: 1 Cigarettes Per Day: 20.0 Years Smoked: 18 e-Cigarette/Vaping Use: Never Used Second Hand Smoke Exposure: No Use of substances other than those prescribed or required for medical reasons: Yes Substance Use Frequency: Daily Have you been hit, kicked, punched, or otherwise hurt by someone within the past year? If so, by whom?: No Are you DNR?: No Advance Directives: No Advance Directives Information Provided: Yes Poor oral hygiene: No service: No Current occupational status: employed Current occupation: [employer] Current occupational exposures/hazards: Yes Cognitive needs: No Hearing needs: No Vision needs: No Meds Allergies Allergy/AdvReac Type Severity Reaction Status Date / Time No Known Allergies Allergy Verified 07/22/24 11:35 Home Medications ?Medication ?Instructions ?Recorded ?Confirmed ?Last Taken ?Type No Known Home Meds 08/19/24 08/19/24 Unknown History Exam Height,Weight and Vital Signs: Height 5 ft 11 in Weight 96.615 kg Assessment and Plan Assessment Anesthesia Assessment: Chart Reviewed Final Anesthetic Review Family History of Problems with Anesthesia: No History of Problems with Anesthesia: No Documented by User: Gold Amaya MD 08/21/24 10:34 PMFSH Past Medical History Medical History Tubulovillous adenoma Hx of low back pain History of colon polyps Nicotine dependence, cigarettes, uncomplicated Family History Family History Maternal Grandfather Substance use disorder Surgical History Surgical History History of hand surgery History of lumbar surgery (~2006) History of lumbar surgery (~2005) History of colonoscopy Social History Social History Housing: House Are you a primary healthcare business analyst to a significant other at home: No Do you presently have visiting nurse or other home services: No Alcohol intake: current Alcohol intake frequency: a few times a week Alcohol type: hard liquor Patient Tobacco Use Status: Current everyday Tobacco user Tobacco use type: Cigarette Cigarette Packs Per Day: 1 Cigarettes Per Day: 20.0 Years Smoked: 18 e-Cigarette/Vaping Use: Never Used Second Hand Smoke Exposure: No Use of substances other than those prescribed or required for medical reasons: Yes Substance Use Frequency: Daily Have you been hit, kicked, punched, or otherwise hurt by someone within the past year? If so, by whom?: No Are you DNR?: No Advance Directives: No Advance Directives Information Provided: Yes Poor oral hygiene: No service: No Current occupational status: employed Current occupation: [employer] Current occupational exposures/hazards: Yes Cognitive needs: No Hearing needs: No Vision needs: No Meds Allergies Allergy/AdvReac Type Severity Reaction Status Date / Time No Known Allergies Allergy Verified 07/22/24 11:35 Home Medications ?Medication ?Instructions ?Recorded ?Confirmed ?Last Taken ?Type No Known Home Meds 08/19/24 08/19/24 Unknown History Exam Airway Mallampati Class: II TM Dist: <=3cm Neck ROM: Full Loose/Missing/Broken Teeth: Yes (upper front cap is loose. Discussed options. Will leave it in.) Heart: ok Lungs: ok. Assessment and Plan Assessment Anesthesia Assessment: Anesthesia Plan Discussed Final Anesthetic Review NPO: Yes ASA Class: II Final Preanesthetic Review: No Changes in Pt Med Stat, Meds/Allgs Chart Reviewed, Consent Obtained/Reviewed and Anes Risks/Benef Reviewed Patient Risk: Intermediate Procedure Risk: Low Anesthetic Plan Anesthetic Plan: MAC: and Agree w/ Assess. and Plan Disposition: Standard PACU
[2024-08-21 08:52] VITALS: BMI 29.9
[2024-08-21 08:59] VITALS: BP 129/86; PULSE 71; RESP 16; TEMP 36.4; O2SAT 95
[2024-08-21] MEDS: Lactated Ringers 1,000 ML 100 ML IVCONT (09:04)
--- NOTE | 2024-08-21 10:01 | MHC.SHP ---
Pre-Procedural Eval Section A - 24 Hr Update-Section A only Date of Service: 08/21/24 Section B - Complete if H&P > 30 days Chief Complaint: Abnormal levels of other serum enzymes Relevant Family History (Specify if Yes): No Relevant Social History: Tobacco Use Present Medications: see Short Stay Collaborative assessment Medical History: Significant History (Tubulovillous adenoma Hx of low back pain History of colon polyps Nicotine dependence, cigarettes, uncomplicated) History of Previous Operations: Relevant previous surgery/procedure and date(s) (History of hand surgery History of lumbar surgery (~2006) History of lumbar surgery (~2005) History of colonoscopy) Allergies: Allergies Allergy/AdvReac Type Severity Reaction Status Date / Time No Known Allergies Allergy Verified 07/22/24 11:35 Review of Systems Sugical H&P ROS: Negative: Constitution, Cardiovascular, Respiratory, Neurological, Psychiatric, Hem-Onc, Allergic/Immunologic, Gastrointestinal, Genitourinary, Musculoskeletal, Integumentary, Endocrine and Eyes/Ears/Nose/Throat Exam Surgical H&P Exam: Normal: HEENT, Normal: Heart, Normal: Lungs, Normal: Extremities, Normal: Abdomen, Normal: Skin and Normal: Neurological Plan Diagnosis/Plan: Unchanged I have reviewed the history and physical and performed a pertinent physical examination on my patient. No changes have occurred unless specified. Time Spent With Patient Time: Total time managing care of this patient today ____ minutes.
--- NOTE | 2024-08-21 10:54 | HO.OPN-COLON ---
Colonoscopy Operative Note Operative Note Date of Service: 08/21/24 Narrative: Operative Information Procedure Description: Colonoscopy Indication: hx of colon polyps Anesthesia: MAC COLONOSCOPY Instrument: Olympus variable stiffness pediatric scope 190L Colonoscopy Monitoring: Vital signs and clinical assessment, continuous EKG monitoring, Pulse oximetry, Carbon Dioxide monitoring and blood pressure monitoring were done throughout the procedure. Colon withdrawal time was 23 minutes. Procedure: The patient was placed in the left lateral decubitis position and pre-procedure medications were administered. After a digital rectal examination of the ano-rectum, the video colonoscope was inserted into the rectum and advanced through the colon to the cecum/TI. The colonoscope was slowly withdrawn in a retrograde panoramic fashion and the colon mucosa was carefully examined including a retroflexed view of the rectum. Findings and interventions are described below. Procedure Difficulty: easy Findings: Terminal Ileum-normal Cecum:normal Right sided retorflexion- normal Ascending Colon: normal Transverse Colon -normal Descending Colon:normal Sigmoid Colon: proximal area with x 3 sessile polyps 5-7 mm removed with cold snare - distal colon with pedunculated polyp about 12-14 mm, stalk injected with few ml of epinephrine then removed with hot snare with x 1 clip applied to defect. Moderate diverticulosis. Rectum: Retroflexion with medium sized internal hemorrhoids seen, grade I - x 6 sessile polyps 7-8 mm removed with cold snare, x1 sessile polyp 4-5 mm removed with cold forceps Anorectum - normal Intervention: cold snare polypectomy, cold forceps polypectomy, epinephrine injection and hot snare with clip Colon preparation: [place] Bowel Preparation Scale Right colon; 2 Transverse colon: 2 Left colon; 2 (0 = Unprepared colon segment with mucosa not seen due to solid stool that cannot be cleared. 1 = Portion of mucosa of the colon segment seen, but other areas of the colon segment not well seen due to staining, residual stool and/or opaque liquid. 2 = Minor amount of residual staining, small fragments of stool and/or opaque liquid, but mucosa of colon segment seen well. 3 = Entire mucosa of colon segment seen well with no residual staining, small fragments of stool or opaque liquid) Impression and Post Procedure Diagnosis: diverticulosis colon polyps x 11 internal hemorrhoids Plan: High fiber diet leaflet Avoid straining at stool, epsom salts and sitz bath, anusol supps or cream Repeat Colonoscopy in 6-12 months or earlier if clinically indicated Above findings were reviewed with the patient and relevant handouts were provided if indicated.
[2024-08-21 10:59] VITALS: BP 88/51; PULSE 72; RESP 18; TEMP 36.3; O2SAT 94
[2024-08-21 11:14] VITALS: BP 144/84; PULSE 64; RESP 16; TEMP 36.7; O2SAT 96
== END 2024-08-21 11:38 | disposition home or self-care (01) ==
PROVIDERS: PCP Nurse Practitioner Family; Visit Provider Internal Medicine Gastroenterology
PROC: 0DJD8ZZ Inspection of Lower Intestinal Tract, Via Natural or Artificial Opening Endoscopic (ICD-10-PCS; CPT 45378; principal; 2024-08-21 10:50)
DX: Z12.11 Encounter for screening for malignant neoplasm of colon (principal); D12.4 Benign neoplasm of descending colon; D12.5 Benign neoplasm of sigmoid colon; K62.1 Rectal polyp; K57.30 Diverticulosis of large intestine without perforation or abscess without bleeding; K64.0 First degree hemorrhoids; Z86.0101 Personal history of adenomatous and serrated colon polyps; F17.210 Nicotine dependence, cigarettes, uncomplicated
CPT/HCPCS: 45385; 45381; 45380; 88305; J0171; J2003; J2704

== ENCOUNTER → 2024-08-21 08:14 | Outpatient (BNV) | payer MEDICAID, SELFPAY | PROVIDERS: PCP Nurse Practitioner Family; Visit Provider Internal Medicine Gastroenterology | DX: Z12.11 Encounter for screening for malignant neoplasm of colon (principal); Z86.0101 Personal history of adenomatous and serrated colon polyps; D12.5 Benign neoplasm of sigmoid colon; K62.1 Rectal polyp; K57.30 Diverticulosis of large intestine without perforation or abscess without bleeding; K64.8 Other hemorrhoids | CPT/HCPCS: 45380; 45381; 45385 ==

== ENCOUNTER 2024-09-02 08:10 | Outpatient (REF) | payer OTHER, SELFPAY ==
--- NOTE | ~2024-09-02 | CT_ITS ---
CLINICAL HISTORY: F17.210 - Nicotine dependence, cigarettes, uncomplicated CT lung cancer screening (LDCT) Comparison: 08/01/2023 Technique: Axial CT images of the chest using low-dose technique. Referring provider counseled the patient on shared decision-making for LDCT screening. Additional counseling was provided on smoking cessation. Effective radiation dose total: DLP 62.3 mGycm, CTDIvol 1.7 mGy. Findings: Smoking-related lung changes. Stable 2 mm nodule in the right upper lobe (series 4, image 72). Stable 2 mm nodule in the right middle lobe (series 4, image 81) Stable 2 mm nodule in the left lower lobe on series 4, image 97. Stable 2 mm nodule in the left lower lobe on series 4, image 108. Coronary artery calcifications: Mild Redemonstration mild left adrenal gland hyperplasia and left hepatic lobe cyst. Other: None Impression: LungRADS 2 - Benign Appearance: Continue annual screening with low dose Chest CT in 12 months. ##L2# Category 1: Normal; continue annual screening Category 2: Benign appearance or behavior, continue annual screening Category 3: Probably benign, [address] recommended Category 4A: Suspicious, [address] recommended; may consider PET/CT Category 4B: Suspicious, Additional diagnostics and/or tissue sampling recommended Category 4X: Suspicious, Additional diagnostics and/or tissue sampling recommended Category 0: Recalls (incomplete screen due to Incomplete coverage, Noise, Respiratory motion, Expiration, Obscured by acute abnormality) This document has been electronically signed by: Michelle Linder MD on 09/03/2024 08:55:40
== END 2024-09-02 08:11 | disposition home or self-care (01) ==
LOC: HO.CT 08:10
PROVIDERS: PCP Nurse Practitioner Family; Visit Provider Physician Assistant Medical
DX: Z12.2 Encounter for screening for malignant neoplasm of respiratory organs (principal); F17.210 Nicotine dependence, cigarettes, uncomplicated
CPT/HCPCS: 71271

== ENCOUNTER → 2024-09-02 08:12 | Outpatient (BNV) | payer OTHER, SELFPAY | PROVIDERS: PCP Nurse Practitioner Family; Visit Provider Radiology Diagnostic Radiology | DX: F17.210 Nicotine dependence, cigarettes, uncomplicated (principal) | CPT/HCPCS: 71271 ==

== ENCOUNTER 2025-01-22 11:31 | Outpatient (AMB) | payer OTHER, SELFPAY ==
[2025-01-22 11:35] VITALS: BP 130/80; PULSE 80; RESP 16; TEMP 36.9; O2SAT 94; BMI 30.7
--- NOTE | 2025-01-22 11:35 | MHC.PC.OV ---
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 Accompanied by: Self / Same As Patient Allergies No Known Allergies Allergy (Verified 01/22/25 12:35) Medication List - Last Reconciled 01/22/25 by MARGE Uriostegui No Known Home Meds Tobacco use date assessed: 01/22/25 Dental Screening Dental Screen Date: 01/22/25 Did you have a dental visit in the last 12 months?: Yes Did you have a dental problem in the last 6 months where you did not have access to dental care?: No Was dental information given to patient?: Patient has dentist HPI 6 month follow up HPI Details Chief Complaint The patient presents with right flank pain and right upper chest discomfort. History of Present Illness The patient is a 59-year-old male presenting with right flank pain and right upper chest discomfort. The right flank pain began approximately two weeks ago after a golfing session and has since radiated to the lower back. The pain is slowly improving, and there is no costovertebral angle tenderness noted. The patient also reports right upper chest discomfort, which he associates with golfing, as it started around the same time. The discomfort extends to the anterior shoulder region (mainly pointing to anterior shoulder rather than chest) The patient has a history of smoking, which necessitates a renal ultrasound to rule out any underlying renal issues, and a EKG will be performed. Social History - History of smoking Health Maintenance - Renal ultrasound recommended due to history of smoking Review of Systems - Musculoskeletal: Reports right flank pain radiating to lower back, improving over time - Respiratory: Denies increased dyspnea, reports right upper chest discomfort extending to anterior shoulder Physical Exam General: Cooperative, healthy appearing, comfortable, no acute distress and well developed Orientation: Patient oriented x3 Limitations: No limitations Head: Normal to inspection Ears: Hearing grossly normal bilaterally Nose: Normal external nose present Face and sinus: Normal facial exam Eyes: Appearance normal, both eyes and all related structures Neck: Normal visual inspection and Yes full ROM Respiratory: Diminished lung sounds though moving air with some faint wheezes Cardiovascular: Regular rate and rhythm. Normal S1 and S2 GI: Normal to inspection. Soft to palpation and nontender Skin: No rashes or lesions noted Neuro: Patient oriented x3 Extremities: Normal to inspection, can heel and toe walk with no difficulties, no radiculopathy with leg lifts, no pain increase with palpation Plan 1. Right Flank Pain The patient reports right flank pain that began after golfing, radiating to the lower back, and is slowly improving. A renal ultrasound is planned due to the patient's history of smoking, despite no costovertebral angle tenderness being present. 2. Right Upper Chest Discomfort The patient experiences right upper chest discomfort extending to the anterior shoulder, which he associates with golfing. An EKG is planned to further evaluate this symptom. chest XR ordered 3. lower back pain: sending muscle relaxor to try Discussion Notes I discussed with the patient the plan to obtain a renal ultrasound due to his history of smoking and the presence of right flank pain, despite the absence of costovertebral angle tenderness. Additionally, an EKG will be performed to assess the right upper chest discomfort extending to the anterior shoulder. Patient Instructions - Follow up with renal ultrasound as scheduled. - Undergo EKG today to evaluate chest discomfort and chest XR. lab orders entered [facility] Medical History Tubulovillous adenoma Hx of low back pain History of colon polyps Nicotine dependence, cigarettes, uncomplicated Surgical History History of hand surgery History of lumbar surgery (~2006) History of lumbar surgery (~2005) History of colonoscopy Family History Maternal Grandfather Substance use disorder Social History Housing: House Are you a primary healthcare management to a significant other at home: No Do you presently have visiting nurse or other home services: No Alcohol intake: current Alcohol intake frequency: a few times a week Alcohol type: hard liquor Patient Tobacco Use Status: Current everyday Tobacco user Tobacco use type: Cigarette Cigarette Packs Per Day: 1 Cigarettes Per Day: 20.0 Years Smoked: 18 e-Cigarette/Vaping Use: Never Used Second Hand Smoke Exposure: No service: No Current occupational status: employed Current occupation: [employer] Current occupational exposures/hazards: Yes Cognitive needs: No Hearing needs: No Vision needs: No Questionnaire PHQ-9 Over the last 2 weeks, how often have you been bothered by any of the following problems? 1. Little interest or pleasure in doing things: not at all 2. Feeling down, depressed, or hopeless: not at all 3. Trouble falling or staying asleep, or sleeping too much: not at all 4. Feeling tired or having little energy: several days 5. Poor appetite or overeating: several days 6. Feeling bad about yourself - or that you are a failure or have let yourself or your family down: not at all 7. Trouble concentrating on things, such as reading the newspaper or watching television: not at all 8. Moving or speaking so slowly that other people could have noticed. Or the opposite - being so fidgety or restless that you have been moving around a lot more than usual: not at all 9. Thoughts that you would be better off or of hurting yourself in some way: not at all Total score: 2 Depression Screening Interpretation: Negative Depression Screening Done: Yes 65444 - PHQ-9 Billing: Yes Source: Developed by Drs. Omi Buckner, Lacey Warner, Elvin Sutton and colleagues, with an educational celio from [employer]. Thrive Questionnaire Date Thrive assessed: 07/22/24 I am a: Patient What is your living situation today?: I have a steady place to live Within the past 12 months, did the food you bought not last and you didn't have the money to get more?: Never true Within the past 12 months, did you worry whether your food would run out before you got money to buy more?: Never true Do you have trouble paying for medicines?: No Do you have trouble getting transportation to medical appointments?: No Do you have trouble paying your heating and electricity bill?: No Do you have trouble taking care of your child, family member or friend?: No Do you have trouble with day-to-day activities such as bathing, preparing meals, shopping, managing finances, etc.?: No Are you currently unemployed and looking for a job?: Yes Are you interested in more education?: Yes Currently or been in a relationship where the following occur: No concerns reported THRIVE Score: 0 ELICEO-7 AMB Questionnaire ELICEO-7 Date ELICEO - 7 assessed: 01/22/25 Feeling nervous, anxious, or on edge: 0 = Not at all Not being able to stop or control worryin = Not at all Worrying too much about different things: 0 = Not at all Trouble relaxin = Not at all Being so restless that it is hard to sit still: 0 = Not at all Becoming easily annoyed or irritable: 0 = Not at all Feeling afraid as if something awful might happen: 0 = Not at all Total ELICEO-7 score (0-4 normal; 5-9 mild; 10-14 moderate; 15-21 severe): 0 Source: Developed by Drs. Omi Buckner, Lacey Warner, Elvin Sutton and colleagues, with an educational celio from [employer]. Physical exam (Primary Care) Vital Signs: Last Vital Signs Temp 98.4 F 01/22/25 11:35 Pulse 80 01/22/25 11:35 Resp 16 01/22/25 11:35 BP 130/80 01/22/25 11:35 Pulse Ox 94 01/22/25 11:35 Oxygen Delivery Method Room Air 01/22/25 11:35 BMI result Body Mass Index 30.7 Tobacco/Smoking Status: Tobacco use Status Tobacco use date assessed 01/22/25 01/22/25 11:40 Patient Tobacco Use Status Current everyday Tobacco 01/22/25 11:40 Tobacco use type Cigarette 01/22/25 11:40 e-Cigarette/Vaping Use Never Used 01/22/25 11:40 PHQ-9: PHQ-9 Score PHQ-9: Total score 2 01/22/25 12:02 Depression Screening Interpretation: Negative Thrive Assessment: Date of Thrive Assessment Date Thrive assessed 07/22/24 01/22/25 11:40 Currently or been in a relationship where the following occur: No concerns reported Coding Level of Care Code Est Pt Level 3 (85729) Diagnoses Low back pain M54.50 Nicotine dependence, cigarettes, uncomplicated F17.210 Screening PSA (prostate specific antigen) Z12.5 Right flank pain R10.9 Chest discomfort R07.89 Additional Codes PHQ-9 - 72113 - PHQ-9 Billing: Yes ([id number]) Assessment & Plan Assessment & Plan (1) Low back pain: Code(s): M54.50 - Low back pain, unspecified Category: Medical (2) Nicotine dependence, cigarettes, uncomplicated: Comment: (current smoker - onset 18yo, 1ppd x 38yrs, 35PYH) Code(s): F17.210 - Nicotine dependence, cigarettes, uncomplicated Category: Medical (3) Screening PSA (prostate specific antigen): Code(s): Z12.5 - Encounter for screening for malignant neoplasm of prostate Category: Medical (4) Right flank pain: Code(s): R10.9 - Unspecified abdominal pain Category: Medical (5) Chest discomfort: Code(s): R07.89 - Other chest pain Category: Medical Plan . Orders: Orders Complete Blood Count Auto Diff Today F17.210 - Nicotine dependence, cigarettes, uncomplicated, M54.50 - Low back pain, unspecified UA CC w/rflx Micro + Cult Today F17.210 - Nicotine dependence, cigarettes, uncomplicated, M54.50 - Low back pain, unspecified Prostate Specific Antigen Scr Today Z12.5 - Encounter for screening for malignant neoplasm of prostate US renal BI Today R10.9 - Unspecified abdominal pain XR chest 2V Today R07.89 - Other chest pain Comprehensive Rapelje. Panel Fast Today F17.210 - Nicotine dependence, cigarettes, uncomplicated, M54.50 - Low back pain, unspecified TSH reflex Free T4 Today F17.210 - Nicotine dependence, cigarettes, uncomplicated, M54.50 - Low back pain, unspecified Lipid Panel Today F17.210 - Nicotine dependence, cigarettes, uncomplicated, M54.50 - Low back pain, unspecified Medications: New tizanidine 4 mg PO BEDTIME PRN 7 tabs 0RF muscle spasticity 7 days
== END 2025-01-22 12:29 | disposition home or self-care (01) ==
LOC: HO.HMCC 11:32
PROVIDERS: PCP Nurse Practitioner Family; Visit Provider Nurse Practitioner Family
DX: M54.50 Low back pain, unspecified (principal); F17.210 Nicotine dependence, cigarettes, uncomplicated; Z12.5 Encounter for screening for malignant neoplasm of prostate; R10.9 Unspecified abdominal pain; R07.89 Other chest pain

== ENCOUNTER → 2025-01-22 11:31 | Outpatient (BNVA) | payer OTHER, SELFPAY | PROVIDERS: PCP Nurse Practitioner Family; Visit Provider Nurse Practitioner Family | DX: R07.89 Other chest pain (principal); R10.9 Unspecified abdominal pain; M54.50 Low back pain, unspecified; F17.210 Nicotine dependence, cigarettes, uncomplicated | CPT/HCPCS: 96127; 99212 ==

== ENCOUNTER 2025-01-30 10:31 | Outpatient (AMB) | payer OTHER, SELFPAY ==
[2025-01-30 11:20] VITALS: BP 130/80; PULSE 89; TEMP 36.7; O2SAT 98; BMI 31.0
--- NOTE | 2025-01-30 11:20 | MHC.OFFWIV ---
Intake Vital Signs 01/30/25 11:20 Height 5 ft 11 in Weight 222 lb BMI 31.0 BP 130/80 Blood Pressure Location Rt brachial Position Sitting Pulse 89 Pulse Source Pulse Oximeter Temp 98.0 F Temp Source Oral Pulse Oximetry (%) 98 Intake Visit Reasons: EP UTI? Patient Tobacco Use Status: Current everyday Tobacco user Allergies No Known Allergies Allergy (Verified 01/30/25 11:20) Do you need a note to return to daycare/school/sports/work: No HPI HPI Comments History of Present Illness Details 59 y/o Male patient who presents to the walk in clinic with c/o Urinary symptoms for few days now. C/o Urinary frequency and urgency. He was seen recently by PCP for Lower back pain associated with Spasm - he was diagnosed with Lumbago and prescribed Muscle relaxants and advised to take OTC Pain relief medications. Today reports that he thinks he might have Kidney Stones that are causing his lower back pain. Reports h/o recurrent Kidney stones. Denies Fevers, chills, Nausea or vomiting. [facility] Medical History (Updated 01/30/25 @ 11:53 by Blanca Mazariegos NP) Increased urinary frequency Tubulovillous adenoma Hx of low back pain History of colon polyps Nicotine dependence, cigarettes, uncomplicated Surgical History History of hand surgery History of lumbar surgery (~2006) History of lumbar surgery (~2005) History of colonoscopy Family History Maternal Grandfather Substance use disorder Social History Housing: House Are you a primary senior care specialist to a significant other at home: No Do you presently have visiting nurse or other home services: No Alcohol intake: current Alcohol intake frequency: a few times a week Alcohol type: hard liquor Patient Tobacco Use Status: Current everyday Tobacco user Tobacco use type: Cigarette Cigarette Packs Per Day: 1 Cigarettes Per Day: 20.0 Years Smoked: 18 e-Cigarette/Vaping Use: Never Used Second Hand Smoke Exposure: No service: No Current occupational status: employed Current occupation: [employer] Current occupational exposures/hazards: Yes Cognitive needs: No Hearing needs: No Vision needs: No Review of Systems Const All systems reviewed & are unremarkable except as noted in HPI and below Physical Exam Vital Signs: Last Vital Signs Temp 98.0 F 01/30/25 11:20 Pulse 89 01/30/25 11:20 BP 130/80 01/30/25 11:20 Pulse Ox 98 01/30/25 11:20 BMI result Body Mass Index 31.0 Const General: no acute distress Nutritional Appearance: overweight Orientation/consciousness: patient oriented x3 General: Yes no CVA tenderness Back/Spine/Pelvis Back: no CVA tenderness and back tenderness Thoracic/Lumbar Spine: pain with thoraco-lumbar ROM, thoraco-lumbar spasm on the right in the lower thoracic, in the upper lumbar, in the mid lumbar and in the lower lumbar, thoracic spinal tenderness at T12 and lumbar spinal tenderness at L4 and at L5 Neuro General: patient oriented x3, gait normal and moves all extremities Psych Speech and movement: Normal speech and movement present Results AMB Urinalysis, Automated UA Leukoctes 125 Louie/uL Last Edit by Oswaldo Rey CMA on 01/30/25 11:31 UA Nitrite Negative Last Edit by Oswaldo Rey CMA on 01/30/25 11:31 UA Urobilinogen 0.2 mg/dL Last Edit by Oswaldo Rey CMA on 01/30/25 11:31 UA Protein 0 mg/dL Last Edit by Oswaldo Rey CMA on 01/30/25 11:31 UA pH 6.0 Last Edit by Oswaldo Rey CMA on 01/30/25 11:31 UA Blood 0 Lance/uL Last Edit by Oswaldo Rey CMA on 01/30/25 11:31 UA Specific [place] 1.015 Last Edit by Oswaldo Rey CMA on 01/30/25 11:31 UA Ketone Negative Last Edit by Oswaldo Rey CMA on 01/30/25 11:31 UA Bilirubin 0 mg/dL Last Edit by Oswaldo Rey CMA on 01/30/25 11:31 UA Glucose 0 mg/dL Last Edit by Oswaldo Rey CMA on 01/30/25 11:31 Results Reviewed Results Reviewed: Laboratory Last Values Urine pH (Auto) 6.0 01/30/25 11:30 Specific [place] (Auto) 1.015 01/30/25 11:30 Urine Protein (Auto) 0 mg/dL 01/30/25 11:30 Glucose (UA)(Auto) 0 mg/dL 01/30/25 11:30 Urine Ketones (Auto) Negative 01/30/25 11:30 Urine Blood (Auto) 0 Lance/uL 01/30/25 11:30 Urine Nitrite (Auto) Negative 01/30/25 11:30 Urine Bilirubin (Auto) 0 mg/dL 01/30/25 11:30 Urine Urobilinogen (Auto) 0.2 mg/dL 01/30/25 11:30 Leukocyte Esterase (Auto) 125 Louie/uL 01/30/25 11:30 Assessment & Plan Assessment & Plan (1) Increased urinary frequency: Code(s): R35.0 - Frequency of micturition Plan: Urinalysis + 125 LEUK Will send urine for C&S Ordered Cefuroxime for 7 days. NSAIDs for pain relief. Orders: Orders AMB Urinalysis Automated Today Z13.9 - Encounter for screening, unspecified UA CC w/rflx Micro + Cult Today R35.0 - Frequency of micturition Medications: New cefuroxime axetil 500 mg PO BID 14 tabs 0RF 7 days R35.0 - Frequency of micturition Coding Level of Care Code Est Pt Level 4 (61254) Diagnoses Increased urinary frequency R35.0 Time Spent (min) 20
== END 2025-01-30 11:57 | disposition home or self-care (01) ==
PROVIDERS: PCP Nurse Practitioner Family; Visit Provider Nurse Practitioner Family
DX: R35.0 Frequency of micturition (principal); Z13.9 Encounter for screening, unspecified

== ENCOUNTER 2025-01-30 10:31 | Outpatient (REF) | payer OTHER, SELFPAY ==
[2025-01-30 16:38] LABS: Appearance Urine Clear; Glucose Urine UA Negative (Negative); PH 6.5 (5.0-9.0); Specific Gravity - Urine 1.015 (1.005-1.025); UMIC TRIGGER UACC YES
[2025-01-30 17:01] LABS: UACC Culture Trigger YES
== END 2025-01-30 10:32 | disposition home or self-care (01) ==
LOC: HO.LAB 10:31
PROVIDERS: PCP Nurse Practitioner Family; Visit Provider Nurse Practitioner Family
DX: R35.0 Frequency of micturition (principal); M54.50 Low back pain, unspecified; M54.6 Pain in thoracic spine; Z13.89 Encounter for screening for other disorder
CPT/HCPCS: 81001; 81003; 87086; 99212

== ENCOUNTER 2025-02-27 07:08 | Day surgery (SDC) | payer OTHER, SELFPAY ==
--- NOTE | 2025-02-25 12:02 | HO.ANESPROP2 ---
Documented by User: Rachael Thakkar NP 02/25/25 12:02 HPI - Anesthesia Eval Consult details Narrative: 59yo M for Colonoscopy s/p same 08/2024 with [facility] Active Problems Active Problems: All Active Problems Increased urinary frequency (Acute) Chest discomfort (Acute) Right flank pain (Acute) Facial lesion (Acute) Fall (Acute) Rib pain (Acute) Microscopic hematuria (Acute) Tubulovillous adenoma (Acute) Muscle spasm (Acute) Low back pain (Acute) UTI (urinary tract infection) (Acute) Cerumen impaction (Acute) Elevated liver enzymes (Acute) Liver lesion (Acute) Liver lesion (Acute) Elevated bilirubin (Acute) History of colon polyps (Acute) Nicotine dependence, cigarettes, uncomplicated (Acute) Past Medical History Medical History Increased urinary frequency Tubulovillous adenoma Hx of low back pain History of colon polyps Nicotine dependence, cigarettes, uncomplicated Family History Family History Maternal Grandfather Substance use disorder Family history of problems with anesthesia: No Surgical History Surgical History History of hand surgery History of lumbar surgery (~2006) History of lumbar surgery (~2005) History of colonoscopy History of Problems with Anesthesia: No Social History Social History Housing: House Are you a primary care administrative tech to a significant other at home: No Do you presently have visiting nurse or other home services: No Alcohol intake: current Alcohol intake frequency: a few times a week Alcohol type: hard liquor Patient Tobacco Use Status: Current everyday Tobacco user Tobacco use type: Cigarette Cigarette Packs Per Day: 1 Cigarettes Per Day: 20.0 Years Smoked: 18 e-Cigarette/Vaping Use: Never Used Second Hand Smoke Exposure: No Use of substances other than those prescribed or required for medical reasons: No Advance Directives: No Advance Directives Information Provided: Yes service: No Current occupational status: employed Current occupation: [employer] Current occupational exposures/hazards: Yes Cognitive needs: No Hearing needs: No Vision needs: No Meds Allergies Allergy/AdvReac Type Severity Reaction Status Date / Time No Known Allergies Allergy Verified 01/30/25 11:20 Assessment and Plan Assessment Anesthesia Assessment: Chart Reviewed Final Anesthetic Review Family History of Problems with Anesthesia: No History of Problems with Anesthesia: No Documented by User: Enid Morin MD 02/27/25 08:09 PMFSH Past Medical History Medical History Increased urinary frequency Tubulovillous adenoma Hx of low back pain History of colon polyps Nicotine dependence, cigarettes, uncomplicated Family History Family History Maternal Grandfather Substance use disorder Surgical History Surgical History History of hand surgery History of lumbar surgery (~2006) History of lumbar surgery (~2005) History of colonoscopy Social History Social History Housing: House Are you a primary care administrative tech to a significant other at home: No Do you presently have visiting nurse or other home services: No Alcohol intake: current Alcohol intake frequency: a few times a week Alcohol type: hard liquor Patient Tobacco Use Status: Current everyday Tobacco user Tobacco use type: Cigarette Cigarette Packs Per Day: 1 Cigarettes Per Day: 20.0 Years Smoked: 18 e-Cigarette/Vaping Use: Never Used Second Hand Smoke Exposure: No Use of substances other than those prescribed or required for medical reasons: No Advance Directives: No Advance Directives Information Provided: Yes service: No Current occupational status: employed Current occupation: [employer] Current occupational exposures/hazards: Yes Cognitive needs: No Hearing needs: No Vision needs: No Meds Allergies Allergy/AdvReac Type Severity Reaction Status Date / Time No Known Allergies Allergy Verified 01/30/25 11:20 Exam Airway Mallampati Class: II TM Dist: >3cm Neck ROM: Full Heart: rrr Lungs: cta Assessment and Plan Assessment Anesthesia Assessment: Anesthesia Plan Discussed Final Anesthetic Review NPO: Yes ASA Class: II Final Preanesthetic Review: No Changes in Pt Med Stat, Meds/Allgs Chart Reviewed, Consent Obtained/Reviewed and Anes Risks/Benef Reviewed Patient Risk: Low Procedure Risk: Low Anesthetic Plan Anesthetic Plan: MAC: Disposition: Standard PACU
[2025-02-27 07:34] VITALS: BMI 30.6
[2025-02-27 07:48] VITALS: BP 139/94; PULSE 84; RESP 16; TEMP 36.4; O2SAT 96
[2025-02-27] MEDS: Lactated Ringers 1,000 ML 100 ML IVCONT (07:49)
--- NOTE | 2025-02-27 08:06 | MHC.SHP ---
Pre-Procedural Eval Section A - 24 Hr Update-Section A only Date of Service: 02/27/25 Section B - Complete if H&P > 30 days Chief Complaint: Personal history of colon polyps, unspecified Relevant Family History (Specify if Yes): No Relevant Social History: Tobacco Use Present Medications: see Short Stay Collaborative assessment Medical History: Significant History (Tubulovillous adenoma Hx of low back pain History of colon polyps Nicotine dependence, cigarettes, uncomplicated) History of Previous Operations: Relevant previous surgery/procedure and date(s) ( History of hand surgery History of lumbar surgery (~2006) History of lumbar surgery (~2005) History of colonoscopy) Allergies: Allergies Allergy/AdvReac Type Severity Reaction Status Date / Time No Known Allergies Allergy Verified 01/30/25 11:20 Review of Systems Sugical H&P ROS: Negative: Constitution, Cardiovascular, Respiratory, Neurological, Psychiatric, Hem-Onc, Allergic/Immunologic, Gastrointestinal, Genitourinary, Musculoskeletal, Integumentary, Endocrine and Eyes/Ears/Nose/Throat Exam Surgical H&P Exam: Normal: HEENT, Normal: Heart, Normal: Lungs, Normal: Extremities, Normal: Abdomen, Normal: Skin and Normal: Neurological Plan Diagnosis/Plan: Unchanged I have reviewed the history and physical and performed a pertinent physical examination on my patient. No changes have occurred unless specified. Time Spent With Patient Time: Total time managing care of this patient today ____ minutes.
--- NOTE | 2025-02-27 08:32 | P.OPN-COLO_ITS ---
Colonoscopy Operative Note Operative Note Date of Service: 02/27/25 Narrative: Operative Information Procedure Description: Colonoscopy Indication: hx of colon polyps Anesthesia: MAC COLONOSCOPY Instrument: Olympus variable stiffness pediatric scope 190L Colonoscopy Monitoring: Vital signs and clinical assessment, continuous EKG monitoring, Pulse oximetry, Carbon Dioxide monitoring and blood pressure monitoring were done throughout the procedure. Colon withdrawal time was 12 minutes. Procedure: The patient was placed in the left lateral decubitis position and pre-procedure medications were administered. After a digital rectal examination of the ano-rectum, the video colonoscope was inserted into the rectum and advanced through the colon to the cecum/TI. The colonoscope was slowly withdrawn in a retrograde panoramic fashion and the colon mucosa was carefully examined including a retroflexed view of the rectum. Findings and interventions are described below. Procedure Difficulty: easy Findings: Terminal Ileum-normal Cecum: 3-4 mm sessile polyp removed with cold forceps Ascending Colon:mild diverticulosis Transverse Colon -normal Descending Colon: 8-9 mm sessile polyp removed with cold snare Sigmoid Colon: 6-7 mm sessile polyp removed with cold snare, moderate diverticulosis Rectum: Retroflexion with small internal hemorrhoids seen, grade I Anorectum - normal Intervention: cold forceps,cold snare Colon preparation: [place] Bowel Preparation Scale Right colon; 2 Transverse colon: 2 Left colon; 2 (0 = Unprepared colon segment with mucosa not seen due to solid stool that cannot be cleared. 1 = Portion of mucosa of the colon segment seen, but other areas of the colon segment not well seen due to staining, residual stool and/or opaque liquid. 2 = Minor amount of residual staining, small fragments of stool and/or opaque liquid, but mucosa of colon segment seen well. 3 = Entire mucosa of colon segment seen well with no residual staining, small fragments of stool or opaque liquid) Impression and Post Procedure Diagnosis: diverticulosis colon polyps x3 internal hemorrhoids Plan: High fiber diet leaflet Avoid straining at stool, epsom salts and sitz bath, anusol supps or cream Repeat Colonoscopy in 1-2 years due to recurrent history of polyps or earlier if clinically indicated Above findings were reviewed with the patient and relevant handouts were provided if indicated.
[2025-02-27 08:36] VITALS: BP 112/56; PULSE 74; RESP 16; TEMP 37.1; O2SAT 95
[2025-02-27 08:51] VITALS: BP 126/85; PULSE 70; RESP 16; O2SAT 95
[2025-02-27 09:03] VITALS: BP 131/84; PULSE 76; RESP 16; TEMP 36.8; O2SAT 95
== END 2025-02-27 09:21 | disposition home or self-care (01) ==
PROVIDERS: PCP Nurse Practitioner Family; Visit Provider Internal Medicine Gastroenterology
PROC: 0DJD8ZZ Inspection of Lower Intestinal Tract, Via Natural or Artificial Opening Endoscopic (ICD-10-PCS; CPT 45378; principal; 2025-02-27 07:30)
DX: Z12.11 Encounter for screening for malignant neoplasm of colon (principal); Z86.0101 Personal history of adenomatous and serrated colon polyps; K57.30 Diverticulosis of large intestine without perforation or abscess without bleeding; D12.0 Benign neoplasm of cecum; D12.4 Benign neoplasm of descending colon; D12.5 Benign neoplasm of sigmoid colon
CPT/HCPCS: 45380; 45385; 45381; 88305; J2704

== ENCOUNTER → 2025-02-27 07:08 | Outpatient (BNV) | payer OTHER, SELFPAY | PROVIDERS: PCP Nurse Practitioner Family; Visit Provider Internal Medicine Gastroenterology | DX: Z12.11 Encounter for screening for malignant neoplasm of colon (principal); D12.0 Benign neoplasm of cecum; D12.4 Benign neoplasm of descending colon; D12.5 Benign neoplasm of sigmoid colon; K57.90 Diverticulosis of intestine, part unspecified, without perforation or abscess without bleeding; K64.0 First degree hemorrhoids | CPT/HCPCS: 45380; 45385 ==

== ENCOUNTER 2025-03-14 11:30 | Outpatient (REF) | payer OTHER, SELFPAY ==
--- NOTE | ~2025-03-14 | US_ITS ---
CLINICAL HISTORY: R10.9 - right flank pain US of kidneys Comparison: US/SR - US RENAL BI - 07/15/21 09:49 EDT Findings: Right kidney is normal in size, echogenicity and morphology, 10.8 cm in length. No calculus, mass or hydronephrosis. Left kidney is normal in size, echogenicity and morphology, 11.1 cm in length. No calculus, mass or hydronephrosis. Limited color Doppler demonstrates unremarkable bilateral blood flow. Impression: No sonographic finding to account for right flank pain, normal kidneys. This document has been electronically signed by: Amanda Evans MD on 03/14/2025 16:30:59
== END 2025-03-14 11:31 | disposition home or self-care (01) ==
LOC: HO.HMGCX 11:30
PROVIDERS: PCP Nurse Practitioner Family; Visit Provider Nurse Practitioner Family
DX: R10.A1 Flank pain, right side (principal)
CPT/HCPCS: 76775

== ENCOUNTER → 2025-03-14 11:32 | Outpatient (BNV) | payer OTHER, SELFPAY | PROVIDERS: PCP Nurse Practitioner Family; Visit Provider Radiology Diagnostic Radiology | DX: R10.9 Unspecified abdominal pain (principal) | CPT/HCPCS: 76775 ==